=== PATIENT | female | born 1945 | race Caucasian/White ===

== ENCOUNTER 2019-10-03 20:00 | Inpatient (IN) ==
--- NOTE | 2019-10-03 20:36 | Emergency Department Note ---
History of Present Illness General Chief complaint: Shortness of Breath/Dyspnea Stated complaint: SOB Time Seen by Provider: 10/03/19 20:11 History of Present Illness The patient is a 74-year-old female who presented to the emergency department for an evaluation of cough and difficulty breathing. The patient has been noticing left-sided chest pain which is worsened with lying flat but also notices difficulty breathing when she lies flat. She does have a history of pulmonary fibrosis presumably from rheumatoid arthritis. She had coronary artery bypass grafting at the beginning of August. She states that she did have some degree of chest discomfort but she felt that it was secondary to musculoskeletal pain from the surgery. That pain has been improving but she now notices pain on the left side into her back. The pain is intermittent. She does not currently have any discomfort. She notices the pain worse when she lies flat especially at night. She was seen in our facility 2 weeks ago for unrelated complaints. She denies having any fever. She denies having any productive cough. She is had no travel outside of the country. She has no exposure for coronavirus as far she knows. The patient has not seen her primary care provider or her local facilities clerk for the symptoms. Home Medications Home Medications Medication Instructions Recorded Confirmed Type acetaminophen [Tylenol Extra 500 mg PO Q6H PRN 09/22/19 10/03/19 History Strength] aspirin [Aspirin Low Dose] 81 mg PO QAM 09/22/19 10/03/19 History atorvastatin 10 mg PO QAM 09/22/19 10/03/19 History folic acid 1 mg PO QAM 09/22/19 10/03/19 History furosemide 80 mg PO QAM 09/22/19 10/03/19 History metoprolol succinate 25 mg PO QAM 09/22/19 10/03/19 History nitroglycerin 0.4 mg SUBLINGUAL UD PRN 09/22/19 10/03/19 History omeprazole 20 mg PO QAM 09/22/19 10/03/19 History ondansetron 4 mg PO Q6 PRN #14 tab 09/22/19 10/03/19 Rx oxycodone 5 mg PO UD 09/22/19 10/03/19 History potassium chloride 10 meq PO QAM 09/22/19 10/03/19 History Allergies Allergy/AdvReac Type Severity Reaction Status Date / Time codeine Allergy Unknown UNSURE, Verified 10/03/19 21:12 BUT HAD IT BEFORE Past Med/Surg History Surgical History Hx of CABG Social History Preferred Language: Ukrainian Communication Ability: Effective 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 and A total of 10 systems reviewed and were otherwise negative Physical Exam Vital Signs Vital Signs - 24 hr 10/03/19 20:07 10/03/19 20:15 10/03/19 20:16 Temperature 36.8 C Temperature Source Oral Pulse Rate 96 H Pulse Rate from SpO2 Sensor Respiratory Rate 22 Respiratory Effort / Characteristics Non-Labored Spontaneous Respiratory Depth Normal Respiratory Pattern Regular Blood Pressure 177/106 H Blood Pressure Mean 129 Pulse Oximetry 92 93 Oxygen Delivery Method Room Air Room Air Room Air Sepsis Recent Fever Within 48 Hours No Sepsis New/Unexplained Change in Mental Status No Sepsis Action Taken by Nursing No Action Required 10/03/19 20:47 10/03/19 21:00 10/03/19 21:30 Temperature Temperature Source Pulse Rate 90 91 H 86 Pulse Rate from SpO2 Sensor 89 91 H 86 Respiratory Rate Respiratory Effort / Characteristics Respiratory Depth Respiratory Pattern Blood Pressure 165/94 H 168/99 H 164/92 H Blood Pressure Mean 126 118 120 Pulse Oximetry 94 94 93 Oxygen Delivery Method Room Air Room Air Sepsis Recent Fever Within 48 Hours Sepsis New/Unexplained Change in Mental Status Sepsis Action Taken by Nursing 10/03/19 22:00 10/03/19 22:29 10/03/19 22:30 Temperature Temperature Source Pulse Rate 87 96 H Pulse Rate from SpO2 Sensor 87 96 H 95 H Respiratory Rate Respiratory Effort / Characteristics Respiratory Depth Respiratory Pattern Blood Pressure 166/107 H 163/86 H Blood Pressure Mean 126 107 Pulse Oximetry 92 92 92 Oxygen Delivery Method Sepsis Recent Fever Within 48 Hours Sepsis New/Unexplained Change in Mental Status Sepsis Action Taken by Nursing 10/03/19 23:00 10/03/19 23:30 10/04/19 00:00 Temperature Temperature Source Pulse Rate 89 87 88 Pulse Rate from SpO2 Sensor 89 87 89 Respiratory Rate Respiratory Effort / Characteristics Respiratory Depth Respiratory Pattern Blood Pressure 148/79 H 146/78 H 150/85 H Blood Pressure Mean 102 100 101 Pulse Oximetry 94 94 94 Oxygen Delivery Method Sepsis Recent Fever Within 48 Hours Sepsis New/Unexplained Change in Mental Status Sepsis Action Taken by Nursing 10/04/19 00:01 Temperature Temperature Source Pulse Rate 89 Pulse Rate from SpO2 Sensor 86 Respiratory Rate Respiratory Effort / Characteristics Respiratory Depth Respiratory Pattern Blood Pressure Blood Pressure Mean Pulse Oximetry 94 Oxygen Delivery Method Sepsis Recent Fever Within 48 Hours Sepsis New/Unexplained Change in Mental Status Sepsis Action Taken by Nursing GENERAL: Patient is awake alert in no acute distress patient is resting comfortably and showing no signs of anxiety EYES: The conjunctivae are clear. The pupils are round and reactive. EARS, NOSE, MOUTH AND THROAT: The nose is without any evidence of any deformity. Mucous membranes are moist. NECK: The neck is nontender and supple. RESPIRATORY: Normal respiratory effort was noted. There was no tachypnea or conversational dyspnea. Diminished breath sounds are noted in the left base with rales at the left base. CARDIOVASCULAR: Regular rate and rhythm noted there no murmurs rubs or gallops normal S1 normal S2. GASTROINTESTINAL: The abdomen is soft. Abdomen is nontender. MUSCULOSKELETAL/EXTREMITIES: There is no evidence of gross deformity full range of motion is noted in the hips and shoulders. SKIN: There is no obvious evidence of any rash. No significant pedal edema was noted. NEUROLOGIC: Patient is awake alert and oriented x3. Course Course 2335: I discussed this case with Dr. Burrell. He asked me to discuss the case with the hospitalist group for possible inpatient management as the patient may not be able to have thoracentesis as an outpatient if her symptoms continue to worsen. 2345: I discussed this case with Dr. Barfield who is covering for the [facility] hospitalist group. He is agreed to evaluate the patient in the emergency department for further management and disposition. Administered Medications Aspirin (Ecotrin Ectab) 81 mg PO [facility] Stop: 11/03/19 08:59 Last Admin: 10/04/19 08:08 Dose: 81 mg Documented by: [id number] Atorvastatin Calcium (Lipitor) [facility] Stop: 11/03/19 08:59 Last Admin: 10/04/19 08:07 Dose: 10 mg Documented by: [id number] Enoxaparin Sodium (Lovenox) 40 mg SQ [facility] Stop: 11/03/19 08:59 Last Admin: 10/04/19 08:08 Dose: 40 mg Documented by: [id number] Folic Acid (Folvite) 1 mg PO QAM [facility] Stop: 11/03/19 08:59 Last Admin: 10/04/19 08:07 Dose: 1 mg Documented by: [id number] Guaifenesin (Mucinex) 600 mg PO Q12 [facility] Stop: 11/03/19 01:58 Last Admin: 10/04/19 08:09 Dose: 600 mg Documented by: [id number] Admin: 10/04/19 04:26 Dose: 600 mg Documented by: [id number] Metoprolol Succinate (Toprol Xl) 25 mg [facility] Stop: 11/03/19 08:59 Last Admin: 10/04/19 08:07 Dose: 25 mg Documented by: [id number] Pantoprazole Sodium (Protonix) 40 mg PO [facility] Stop: 11/03/19 08:59 Last Admin: 10/04/19 08:08 Dose: 40 mg Documented by: [id number] Discontinued Medications Albuterol (Duoneb) 3 ml NEB NOW STA Stop: 10/04/19 00:37 Last Admin: 10/04/19 00:52 Dose: 3 ml Documented by: [id number] Furosemide (Lasix) 80 mg IV NOW STA Stop: 10/03/19 23:54 Last Admin: 10/04/19 00:11 Dose: 80 mg Documented by: [id number] Furosemide (Lasix) 80 mg IV ONE ONE Stop: 10/04/19 08:01 Last Admin: 10/04/19 08:14 Dose: 80 mg Documented by: [id number] Magnesium Sulfate/Dextrose (Magnesium Sulfate / D5w) 1 gm in 100 mls @ 100 mls/hr IV Q1H [facility] Stop: 10/04/19 05:44 Last Infusion: 10/04/19 06:37 Dose: 0 mls/hr Documented by: [id number] Admin: 10/04/19 05:37 Dose: 100 mls/hr Documented by: [id number] Infusion: 10/04/19 05:26 Dose: 0 mls/hr Documented by: [id number] Admin: 10/04/19 04:26 Dose: 100 mls/hr Documented by: [id number] Ioversol (Optiray 320 125ml) 115 ml IV ONCE PRN PRN Reason: Interaction Checking Stop: 10/07/19 22:24 Last Admin: 10/03/19 22:25 Dose: 115 ml Documented by: [id number] Ipratropium Guffey (Atrovent 0.02% 0.5mg/2.5ml) 0.5 mg INH Q6R [facility] Stop: 11/03/19 06:59 Last Admin: 10/04/19 07:08 Dose: 0.5 mg Documented by: [id number] Levalbuterol HCl (Xopenex 1.25mg/0.5ml Neb) 1.25 mg INH Q6R [facility] Stop: 11/03/19 06:59 Last Admin: 10/04/19 07:09 Dose: 1.25 mg Documented by: [id number] Methylprednisolone (Solumedrol) 20 mg IV NOW STA Stop: 10/04/19 00:37 Last Admin: 10/04/19 00:46 Dose: 20 mg Documented by: [id number] Potassium Chloride (Klor-Con M20) 20 meq PO QAM [facility] Stop: 11/03/19 08:59 Last Admin: 10/04/19 08:08 Dose: 20 meq Documented by: [id number] Prednisone (Prednisone) 40 mg PO NOW STA Stop: 10/04/19 11:59 Last Admin: 10/04/19 12:15 Dose: 40 mg Documented by: [id number] Medical Decision Making Differential Diagnosis Reactive airway disease, pneumonia, pneumothorax, COPD, CHF, infections, cardiac ischemia, pulmonary embolism, musculoskeletal, gastrointestinal, as well as other pathologies. Medical Records Attestation: I reviewed the patient's medical records. Home Medications Current Medication List: was personally reviewed by me Laboratory Data Attestation: I reviewed the patient's lab results. Result diagrams: 10/04/19 07:07 10/04/19 07:07 Lab Results 10/03/19 10/03/19 10/03/19 Range/Units 20:34 20:34 20:34 WBC 13.51 H (4.8-10.8) K/uL RBC 3.98 L (4.2-5.4) M/uL Hgb 11.9 L (12.0-16.0) g/dL Hct 36.6 L (37-47) % MCV 92.0 (80-100) fL MCH 29.9 (25-34) pg MCHC 32.5 (32-36) g/dL RDW Std Deviation 47.8 H (36.4-46.3) fL RDW Coeff of Jacquelyn 14.4 (11.5-14.5) % Plt Count 407 H (130-400) K/uL MPV 9.8 (7.4-10.4) fL Immature Gran % (Auto) 0.6 % Neut % (Auto) 68.4 % Lymph % (Auto) 14.1 % Culberson % (Auto) 14.7 % Eos % (Auto) 2.1 % Baso % (Auto) 0.1 % Immature Gran # (Auto) 0.08 H (0.00-0.02) K/uL Neut # (Auto) 9.25 H (1.4-6.5) K/uL Lymph # (Auto) 1.90 (1.2-3.4) K/uL Culberson # (Auto) 1.98 H (0.11-0.59) K/uL Eos # (Auto) 0.29 (0-0.5) K/uL Baso # (Auto) 0.01 (0-0.2) K/uL PT 11.3 (9.0-12.0) Seconds INR 1.1 (0.9-1.1) APTT 25.6 (21.0-31.0) Seconds PTT Ratio 0.9 D-Dimer 2550 H* (0-500) ug/L FEU Sodium 138 (136-145) mmol/L Potassium 4.1 (3.5-5.1) mmol/L Chloride 106 (98-107) mmol/L Carbon Dioxide 26 (21-32) mmol/L Anion Gap 6.0 (3-11) BUN 15 (7-18) mg/dl Creatinine 0.85 (0.6-1.2) mg/dl Est Cr Clr Drug Dosing 59.8 ml/min Est GFR ( Amer) 79.3 Est GFR (Non-Af Amer) 68.5 BUN/Creatinine Ratio 18.0 (10-20) Glucose 114 H (70-99) mg/dl Calcium 9.1 (8.5-10.1) mg/dl Magnesium 1.8 (1.8-2.4) mg/dl Total Bilirubin 0.5 (0.2-1) mg/dl AST 14 L (15-37) U/L ALT 15 (12-78) U/L Alkaline Phosphatase 65 (45-117) U/L Troponin I < 0.015 (0-0.045) ng/ml NT-Pro-B Natriuret Pep 1398 H (0-900) pg/ml Total Protein 7.5 (6.4-8.2) gm/dl Albumin 2.8 L (3.4-5.0) gm/dl Globulin 4.7 H (2.5-4.0) gm/dl Albumin/Globulin Ratio 0.6 L (0.9-2) Lipase 74 (73-393) U/L Imaging Data Radiologist's Impression: SINGLE VIEW CHEST CLINICAL HISTORY: Atypical chest pain. FINDINGS: An AP, portable, upright chest radiograph is compared to study dated 09/22/2019. The examination is degraded by portable technique and patient rotation. The patient is status post midline sternotomy. The heart is enlarged noting atherosclerotic calcification of the thoracic aorta. There is pulmonary vascular congestion. Emphysema and chronic interstitial thickening are similar to previous. Dependent airspace opacities are noted. Trace pleural effusions are suspected. No pneumothorax is seen. The skeletal structures are osteopenic. The bony thorax is grossly intact. IMPRESSION: 1. Cardiomegaly with evidence of congestive failure. 2. Dependent airspace opacities likely represent atelectasis. Clinical correlation will be required. 3. Suspect trace pleural effusions. ACT 112: Negative or not required by law. Electronically signed by: Gabe Gasca M.D. 10/03/2019 9:26 PM Dictated: 10/03/192123 Transcribed: 10/03/192123 CT ANGIOGRAM OF THE CHEST CLINICAL HISTORY: Dyspnea. Cough. COMPARISON STUDY: Chest x-ray dated 10/03/2019. Chest CT dated 03/01/2008. TECHNIQUE: Following the IV administration of 115 cc of Optiray 320, CT angiogram of the chest was performed from the upper abdomen to the thoracic inlet utilizing the pulmonary embolus protocol. Images are reviewed in the axial, sagittal, and coronal planes. 3-D MIPS images are created and assessed. IV contrast was administered without complication. A dose lowering technique was utilized adhering to the principles of ALARA. The examination is compromised by motion artifact. CT DOSE: 541.44 mGycm FINDINGS: Thyroid: Imaged portions of the thyroid gland are normal in size and attenuation. Thoracic aorta: There is atherosclerotic calcification of the thoracic aorta, which is normal in caliber and demonstrates standard 3-vessel arch anatomy. No dissection is seen. Pulmonary vasculature: The pulmonary trunk is mildly dilated measuring 3.1 cm in diameter. This suggests pulmonary artery hypertension. There are no filling defects identified in main, lobar, or proximal segmental pulmonary branches to suggest pulmonary embolus. Evaluation of the peripheral branches is degraded by motion artifact. Heart: The patient is status post midline sternotomy. The heart is enlarged and without pericardial effusion. Lungs and pleural spaces: Evaluation of the lung parenchyma is significantly degraded by motion artifact. Emphysematous change is noted. There is a small left pleural effusion with associated basilar consolidation. Trace fluid is noted along the left major fissure. The trachea and central airways are clear. A 4 mm right upper lobe pulmonary nodule is seen on image #168. Scattered calcified granulomas are observed. Mediastinum: There is no mediastinal lymphadenopathy. Christina: Clear. Axillae: There is no axillary lymphadenopathy. Upper abdomen: There is a small hiatal hernia. Partially visualized upper abdominal viscera is within normal limits. Skeletal structures: The skeletal structures are osteopenic. Degenerative change is noted in the shoulders and thoracic spine. No lytic or blastic bony lesions are seen. IMPRESSION: 1. Motion compromised examination. 2. There is no evidence of central pulmonary embolus in the main, lobar, or proximal segmental pulmonary arteries. 3. Cardiomegaly and emphysema. 4. There is a small left pleural effusion with associated basilar consolidation. This likely represents atelectasis. Clinical correlation will be required. 5. There is a 4 mm right upper lobe pulmonary nodule. This is pathologically indeterminant but new from 2008. This can be followed as per the Fleischner criteria. See below. 6. Additional findings as above. Please refer to below summary of Fleischner criteria recommendations for follow- up of incidental CT nodules (Leo Walter, Guidelines for management of small pulmonary nodules detected on CT scans: A statement from the Fleischner [facility], Radiology 237: [phone].) SOLID NODULES Solitary nodule size: <6 mm * low risk patients: no follow-up needed * high risk patients: optional CT at 12 months Solitary nodule size: 6-8 mm * low risk patients: follow-up at 6-12 months, then consider further follow-up at 18-24 months * high risk patients: initial follow-up CT at 6-12 months and then at 18-24 months if no change Solitary nodule size: >8 mm * either low or high risk patients - consider follow-up CT at 3 months, and/or CT-PET, and/or biopsy Multiple nodules size: <6 mm * low risk patients: no routine follow-up * high risk patients: optional CT at 12 months Multiple nodules size: 6-8 mm * low risk patients: follow-up at 3-6 months, then consider further follow-up at 18-24 months * high risk patients: follow-up at 3-6 months, then at 18-24 months if no change Multiple nodules size: >8 mm * low risk patients: follow-up at 3-6 months, then consider further follow-up at 18-24 months * high risk patients: follow-up at 3-6 months, then at 18-24 months if no change Note: newly detected indeterminate nodule in persons 35 years of age or older. * low risk patients: minimal or absent history of smoking and/or other known risk factors * high risk patients: history of smoking or of other known risk factors (e.g. first degree relative with lung cancer, or exposure to asbestos, radon, uranium) * if a nodule up to 8 mm is partly solid or is ground glass further follow-up is required after 24 months to exclude possible slow growing adenocarcinoma (KARLO) SUBSOLID NODULES Solitary pure ground-glass nodule * nodule size <6 mm - no CT follow-up required * nodule size >=6 mm - follow-up CT at 6-12 months, then every 2 years until 5 years Solitary part-solid nodule * nodule size <6 mm - no CT follow-up required * nodule size >=6 mm - follow-up CT at 3-6 months. If unchanged, and solid component remains <6 mm, then annual follow-up for 5 years Multiple subsolid nodules * nodule size <6 mm - follow-up CT at 3-6 months, consider further follow-up at 2 and 4 years if stable * nodule size >=6 mm - follow-up CT at 3-6 months, subsequent management based on the most suspicious nodule(s) ACT 112: Negative or not required by law. Electronically signed by: Gabe Gasca M.D. 10/03/2019 10:39 PM Dictated: 10/03/[id number] Transcribed: 10/03/192227 ECG Data Attestation: I personally reviewed and interpreted this ECG as follows: Indication: + SOB/dyspnea Rate (beats per minute): 93 Additional Comments: EKG was obtained in the emergency department. My interpretation is normal sinus rhythm at 93 bpm. There is no ectopy. There is diffuse T wave flattening with anterior T wave inversions noted. There is no acute ST segment elevations noted. There was no significant change compared to a tracing from September 22, 2019. Blood Pressure Blood Pressure Findings: Elevated blood pressure Blood Pressure Disposition: Referred to patients primary care provider SHAYAN Reyes The patient is a 74-year-old female who presented to the emergency department for an evaluation of difficulty breathing especially when lying flat and pleuritic left-sided chest pain. The patient is status post coronary artery bypass grafting. The patient was seen previously for similar complaints. Comparing her chest x-ray 2 weeks ago to her radiographic studies today it does appear that her left-sided pleural effusion is increasing. The patient is not febrile. She does not have a productive cough. Her white blood cell count was elevated but I do not feel this represents an infection at this time. I discussed the patient's laboratory and radiographic studies with her. The patient does have a follow-up appointment with her primary facilities clerk group tomorrow. The patient was reevaluated multiple times. I discussed the patient's condition with the on-call [facility] cardiology group. Given the patient's worsening symptoms and her pleural effusion it was felt that this may be best evaluated as an inpatient as well as possible thoracentesis to determine the cause of the pleural effusion as well as to treat the symptoms. For this reason I discussed her case with the on-call [facility] hospitalist group. They have agreed to evaluate the patient in the emergency department for further management and disposition. Impression & Plan Chest pain, Pleural effusion, Acute dyspnea Discharge Plan Visit Data *Final* Discharge Date/Time: 10/04/19 01:25 Chief Complaint: Shortness of Breath/Dyspnea Stated Complaint: SOB ED Provider: Jae Jung Discharge Problem: Chest pain, Pleural effusion, Acute dyspnea Patient Disposition: Admitted As Inpatient Condition: Good Discharge Instructions Interventions: ED Discharge Assessment Last Done: 10/04/19 01:25 Discharge Problem: Chest pain Qualifiers: Chest pain type: chest pain on breathing Qualified Code(s): R07.1 - Chest pain on breathing
[2019-10-03 21:17] LABS: Basophils # (auto) 0.01 K/uL (0-0.2); Basophils % (auto) 0.1 %; Eosinophils # (auto) 0.29 K/uL (0-0.5); Eosinophils % (auto) 2.1 %; Hematocrit (blood only) 36.6 % (37-47); Hemoglobin 11.9 g/dL (12.0-16.0); Immature Granulocytes # (auto) 0.08 K/uL (0.00-0.02); Immature Granulocytes % (auto) 0.6 %; Lymphocytes % (auto) 14.1 %; Mean Corpuscular Hemoglobin 29.9 pg (25-34); Mean Corpuscular Hgb Conc 32.5 g/dL (32-36); Mean Platelet Volume 9.8 fL (7.4-10.4); Monocytes # (auto) 1.98 K/uL (0.11-0.59); Monocytes % (auto) 14.7 %; Neutrophils # (auto) 9.25 K/uL (1.4-6.5); Neutrophils % (auto) 68.4 %; Platelet Count 407 K/uL (130-400); RDW Coefficient of Variation 14.4 % (11.5-14.5); RDW Standard Deviation 47.8 fL (36.4-46.3); Red Blood Count 3.98 M/uL (4.2-5.4); White Blood Count 13.51 K/uL (4.8-10.8)
[2019-10-03 21:21] LABS: INR 1.1 (0.9-1.1); Partial Thromboplastin Ratio 0.9; Partial Thromboplastin Time 25.6 Seconds (21.0-31.0); Prothrombin Time 11.3 Seconds (9.0-12.0)
[2019-10-03 21:26] LABS: Alanine Aminotransferase 15 U/L (12-78); Albumin Level 2.8 gm/dl (3.4-5.0); Aspartate Aminotransferase 14 U/L (15-37); Blood Urea Nitrogen 15 mg/dl (7-18); Calcium 9.1 mg/dl (8.5-10.1); Carbon Dioxide 26 mmol/L (21-32); Chloride 106 mmol/L (98-107); Creatinine Clr Calc Pharmacy 59.8 ml/min; Est GFR (African American) 79.3; Est GFR (Non-African American) 68.5; Glucose 114 mg/dl (70-99); Lipase 74 U/L (73-393); Potassium 4.1 mmol/L (3.5-5.1); Sodium 138 mmol/L (136-145)
--- NOTE | 2019-10-03 21:27 | XRay Report ---
SINGLE VIEW CHEST CLINICAL HISTORY: Atypical chest pain. FINDINGS: An AP, portable, upright chest radiograph is compared to study dated 09/22/2019. The examina tion is degraded by portable technique and patient rotation. The patient is status post midline ryder otomy. The heart is enlarged noting atherosclerotic calcification of the thoracic aorta. There is pul monary vascular congestion. Emphysema and chronic interstitial thickening are similar to previous. De pendent airspace opacities are noted. Trace pleural effusions are suspected. No pneumothorax is seen. The skeletal structures are osteopenic. The bony thorax is grossly intact. IMPRESSION: 1. Cardiomegaly with evidence of congestive failure. 2. Dependent airspace opacities likely represent atelectasis. Clinical correlation will be required. 3. Suspect trace pleural effusions. ACT 112: Negative or not required by law. Electronically signed by: Gabe Gasca M.D. 10/03/2019 9:26 PM
[2019-10-03 21:31] LABS: Albumin Globulin Ratio 0.6 (0.9-2); Alkaline Phosphatase 65 U/L (45-117); Bilirubin,Total 0.5 mg/dl (0.2-1); Globulin 4.7 gm/dl (2.5-4.0); NT Pro B Type Natriuretic Pept 1398 pg/ml (0-900); Total Protein 7.5 gm/dl (6.4-8.2); Troponin I < 0.015 ng/ml (0-0.045)
[2019-10-03 21:32] LABS: D Dimer 2550 ug/L FEU (0-500)
[2019-10-03] MEDS ORDERED: OPTIRAY 320 125ml IV PRN (22:25)
--- NOTE | 2019-10-03 22:40 | CT Scan Report ---
CT ANGIOGRAM OF THE CHEST CLINICAL HISTORY: Dyspnea. Cough. COMPARISON STUDY: Chest x-ray dated 10/03/2019. Chest CT dated 03/01/2008. TECHNIQUE: Following the IV administration of 115 cc of Optiray 320, CT angiogram of the chest was pe rformed from the upper abdomen to the thoracic inlet utilizing the pulmonary embolus protocol. Images are reviewed in the axial, sagittal, and coronal planes. 3-D MIPS images are created and assessed. I V contrast was administered without complication. A dose lowering technique was utilized adhering to the principles of ALARA. The examination is compromised by motion artifact. CT DOSE: 541.44 mGycm FINDINGS: Thyroid: Imaged portions of the thyroid gland are normal in size and attenuation. Thoracic aorta: There is atherosclerotic calcification of the thoracic aorta, which is normal in yokasta saqib and demonstrates standard 3-vessel arch anatomy. No dissection is seen. Pulmonary vasculature: The pulmonary trunk is mildly dilated measuring 3.1 cm in diameter. This sugge sts pulmonary artery hypertension. There are no filling defects identified in main, lobar, or proxima l segmental pulmonary branches to suggest pulmonary embolus. Evaluation of the peripheral branches is degraded by motion artifact. Heart: The patient is status post midline sternotomy. The heart is enlarged and without pericardial e ffusion. Lungs and pleural spaces: Evaluation of the lung parenchyma is significantly degraded by motion artif act. Emphysematous change is noted. There is a small left pleural effusion with associated basilar co nsolidation. Trace fluid is noted along the left major fissure. The trachea and central airways are c lear. A 4 mm right upper lobe pulmonary nodule is seen on image #168. Scattered calcified granulomas are observed. Mediastinum: There is no mediastinal lymphadenopathy. Christina: Clear. Axillae: There is no axillary lymphadenopathy. Upper abdomen: There is a small hiatal hernia. Partially visualized upper abdominal viscera is within normal limits. Skeletal structures: The skeletal structures are osteopenic. Degenerative change is noted in the shou lders and thoracic spine. No lytic or blastic bony lesions are seen. IMPRESSION: 1. Motion compromised examination. 2. There is no evidence of central pulmonary embolus in the main, lobar, or proximal segmental pulmon fili arteries. 3. Cardiomegaly and emphysema. 4. There is a small left pleural effusion with associated basilar consolidation. This likely represen ts atelectasis. Clinical correlation will be required. 5. There is a 4 mm right upper lobe pulmonary nodule. This is pathologically indeterminant but new fr om 2007. This can be followed as per the Fleischner criteria. See below. 6. Additional findings as above. Please refer to below summary of Fleischner criteria recommendations for follow-up of incidental CT n odules (Leo Walter, Guidelines for management of small pulmonary nodules detected on CT scans: A sta tement from the Fleischner Society, Radiology 237: [phone].) SOLID NODULES Solitary nodule size: <6 mm * low risk patients: no follow-up needed * high risk patients: optional CT at 12 months Solitary nodule size: 6-8 mm * low risk patients: follow-up at 6-12 months, then consider further follow-up at 18-24 months * high risk patients: initial follow-up CT at 6-12 months and then at 18-24 months if no change Solitary nodule size: >8 mm * either low or high risk patients - consider follow-up CT at 3 months, and/or CT-PET, and/or biopsy Multiple nodules size: <6 mm * low risk patients: no routine follow-up * high risk patients: optional CT at 12 months Multiple nodules size: 6-8 mm * low risk patients: follow-up at 3-6 months, then consider further follow-up at 18-24 months * high risk patients: follow-up at 3-6 months, then at 18-24 months if no change Multiple nodules size: >8 mm * low risk patients: follow-up at 3-6 months, then consider further follow-up at 18-24 months * high risk patients: follow-up at 3-6 months, then at 18-24 months if no change Note: newly detected indeterminate nodule in persons 35 years of age or older. * low risk patients: minimal or absent history of smoking and/or other known risk factors * high risk patients: history of smoking or of other known risk factors (e.g. first degree relative with lung cancer, or exposure to asbestos, radon, uranium) * if a nodule up to 8 mm is partly solid or is ground glass further follow-up is required after 24 m onths to exclude possible slow growing adenocarcinoma (KARLO) SUBSOLID NODULES Solitary pure ground-glass nodule * nodule size <6 mm - no CT follow-up required * nodule size >=6 mm - follow-up CT at 6-12 months, then every 2 years until 5 years Solitary part-solid nodule * nodule size <6 mm - no CT follow-up required * nodule size >=6 mm - follow-up CT at 3-6 months. If unchanged, and solid component remains <6 mm, then annual follow-up for 5 years Multiple subsolid nodules * nodule size <6 mm - follow-up CT at 3-6 months, consider further follow-up at 2 and 4 years if sta ble * nodule size >=6 mm - follow-up CT at 3-6 months, subsequent management based on the most suspiciou s nodule(s) ACT 112: Negative or not required by law. Electronically signed by: Gabe Gasca M.D. 10/03/2019 10:39 PM
[2019-10-03] MEDS ORDERED: FUROSEMIDE 40 MG/4 ML VIAL IV STA (23:53)
[2019-10-04 00:17] LABS: Magnesium 1.8 mg/dl (1.8-2.4)
[2019-10-04] MEDS ORDERED: ALBUT/IPRATROP 3MG/0.5MG NEB 3 ML VIAL NEB STA (00:36)
--- NOTE | 2019-10-04 00:37 | History & Physical Report ---
Date of Service October 04, 2019 Assessment & Plan (1) SOB (shortness of breath): multifactorial : pleural effusions w abnormal BNP, subacute CHF (history diastolic dysfunction as per records) rule out postcardiac injury syndrome ? COPD/ILD exacerbation, no sepsis rule out COVID-19 infection given risk factors hx CAD status post CABG hypertension, stable hyperlipidemia on statin Rx History rheumatoid arthritis, methotrexate recently resumed outpatient for joint aches prediabetes as per records, recent outpatient hemoglobin A1c of 6.29 June 2019 SPN, incidental finding on CT chest past tobacco abuse. PCU Diuretic Rx Strict I/Os, daily weights Update TTE, Cardio consult RE: Post CABG pleural effusion Solu-Medrol 1 dose now, nebs RTC PRN for possible COPD exacerbation Isolation precautions, hold off on additional steroid Rx until COVID-19 infection ruled out May benefit from Pulmonary evaluation if symptoms ascribed to lung disease. Outpatient follow-up imaging for SPN following Fleischner criteria DVT prophylaxis per Lovenox subcu Full code Text document was generated using [employer] voice recognition software. It may contain grammatical or spelling errors. Kindly contact undersigned for clarification of any documentation item in question. History of Present Illness [facility] Chief Complaint: Shortness of breath Primary Care Provider: Jah Lyon MD History obtained from patient and records. Medical history significant for diastolic dysfunction as per records (EF 50% 08/2019), CAD status post CABG, RA-ILD/COPD as per records, rheumatoid arthritis, hypertension, hyperlipidemia, mitral regurgitation, prediabetes as per records, past tobacco abuse. Recent confinement to [facility] under CT surgery service last month for CAD status post CABG. Persistent pleural effusions noted on CXR since surgery last month. Intraoperative BEKA showed EF 50 to 54%, mild to moderate secondary mitral regurgitation. Patient discharged on daily Lasix. Patient seen at the ER 2 weeks ago for bowel issues that have since resolved. Doing well on outpatient follow-up with CT surgeon last week as per notes. Diffuse aches noted about 2 weeks ago attributed to being off rheumatoid arthritis meds since surgery. Patient received 1 dose of methotrexate outpatient last week. 2 days history of dry cough symptoms, pleuritic left-sided chest pain and shortness of breath mostly on exertion. No fever. Poor appetite. Some wheezing at home as per patient. Not sure about sick contacts given recent confinement/ER visit. No recent metropolitan/out of country travel travel. No unusual fluid retention. Patient brought to the ER for evaluation. 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 Allergies Allergy/AdvReac Type Severity Reaction Status Date / Time codeine Allergy Unknown UNSURE, Verified 10/03/19 21:12 BUT HAD IT BEFORE Home Medications Home Medications Medication Instructions Recorded Confirmed Type acetaminophen [Tylenol Extra 500 mg PO Q6H PRN 09/22/19 10/03/19 History Strength] aspirin [Aspirin Low Dose] 81 mg PO QAM 09/22/19 10/03/19 History atorvastatin 10 mg PO QAM 09/22/19 10/03/19 History folic acid 1 mg PO QAM 09/22/19 10/03/19 History furosemide 80 mg PO QAM 09/22/19 10/03/19 History metoprolol succinate 25 mg PO QAM 09/22/19 10/03/19 History nitroglycerin 0.4 mg SUBLINGUAL UD PRN 09/22/19 10/03/19 History omeprazole 20 mg PO QAM 09/22/19 10/03/19 History ondansetron 4 mg PO Q6 PRN #14 tab 09/22/19 10/03/19 Rx oxycodone 5 mg PO UD 09/22/19 10/03/19 History potassium chloride 10 meq PO QAM 09/22/19 10/03/19 History Past Med/Surg History Surgical History Hx of CABG Social History Preferred Language: Upper Sorbian Communication Ability: Effective 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 Beliefs That Will Affect Care: None Current Living Situation: Spouse Other Information That Helps Us Care for You: No Feels Safe at Home: Yes Safety Concerns: Feels Safe At This Time Smoking Status: Never smoker Hx Substance Use: No Review of Systems Review of Systems: As per HPI, all 10 systems reviewed, all other ROS negative Physical Exam Physical Exam: GENERAL: Slightly uncomfortable, pleasant, minimal respiratory distress, occasionally speaks in phrases, SKIN: Normal color, warm HEENT: [place] palpebral conjunctivae, no ptosis, dry buccal mucosa NECK : Supple, no tenderness CHEST : CTA, no tenderness HEART : Healed sternal wound, RRR, ? Systolic murmur ABDOMEN: Some distention, nontender EXTREMITIES : Minimal LE swelling, no LE tenderness, no other conspicuous deformities noted NEUROLOGIC : Coherent, no facial asymmetry, no other gross focality, mild hearing impairment Results & Data Results & Data ([facility]) Vital Signs (Past 12 Hours) Vital Signs Temp Pulse Resp BP Pulse Ox 10/04/19 00:01 89 94 10/04/19 00:00 88 150/85 H 94 10/03/19 23:30 87 146/78 H 94 10/03/19 23:00 89 148/79 H 94 10/03/19 22:30 96 H 163/86 H 92 10/03/19 22:29 166/107 H 92 10/03/19 22:00 87 92 10/03/19 21:30 86 164/92 H 93 10/03/19 21:00 91 H 168/99 H 94 10/03/19 20:47 90 165/94 H 94 10/03/19 20:16 93 10/03/19 20:07 36.8 C 96 H 22 177/106 H 92 Laboratory Results Laboratory Results WBC 13.51 K/uL (4.8-10.8) H 10/03/19 20:34 RBC 3.98 M/uL (4.2-5.4) L 10/03/19 20:34 Hgb 11.9 g/dL (12.0-16.0) L 10/03/19 20:34 Hct 36.6 % (37-47) L 10/03/19 20:34 MCV 92.0 fL (80-100) 10/03/19 20:34 MCH 29.9 pg (25-34) 10/03/19 20:34 MCHC 32.5 g/dL (32-36) 10/03/19 20:34 RDW Std Deviation 47.8 fL (36.4-46.3) H 10/03/19 20:34 RDW Coeff of Jacquelyn 14.4 % (11.5-14.5) 10/03/19 20:34 Plt Count 407 K/uL (130-400) H 10/03/19 20:34 MPV 9.8 fL (7.4-10.4) 10/03/19 20:34 Immature Gran % (Auto) 0.6 % 10/03/19 20:34 Neut % (Auto) 68.4 % 10/03/19 20:34 Lymph % (Auto) 14.1 % 10/03/19 20:34 Wirt % (Auto) 14.7 % 10/03/19 20:34 Eos % (Auto) 2.1 % 10/03/19:34 Baso % (Auto) 0.1 % 10/03/19 20:34 Immature Gran # (Auto) 0.08 K/uL (0.00-0.02) H 10/03/19:34 Neut # (Auto) 9.25 K/uL (1.4-6.5) H 10/03/19 20:34 Lymph # (Auto) 1.90 K/uL (1.2-3.4) 10/03/19 20:34 Wirt # (Auto) 1.98 K/uL (0.11-0.59) H 10/03/19 20:34 Eos # (Auto) 0.29 K/uL (0-0.5) 10/03/19:34 Baso # (Auto) 0.01 K/uL (0-0.2) 10/03/19:34 PT 11.3 Seconds (9.0-12.0) 10/03/19:34 INR 1.1 (0.9-1.1) 10/03/19:34 APTT 25.6 Seconds (21.0-31.0) 10/03/19:34 PTT Ratio 0.9 10/03/19:34 D-Dimer 2550 ug/L FEU (0-500) H* 10/03/19 20:34 Sodium 138 mmol/L (136-145) 10/03/19:34 Potassium 4.1 mmol/L (3.5-5.1) 10/03/19 20:34 Chloride 106 mmol/L (98-107) 10/03/19 20:34 Carbon Dioxide 26 mmol/L (21-32) 10/03/19:34 Anion Gap 6.0 (3-11) 04/08/20 20:34 BUN 15 mg/dl (7-18) 10/03/19 20:34 Creatinine 0.85 mg/dl (0.6-1.2) 10/03/19 20:34 Est Cr Clr Drug Dosing 59.8 ml/min 10/03/19 20:34 Est GFR ( Amer) 79.3 10/03/19 20:34 Est GFR (Non-Af Amer) 68.5 10/03/19 20:34 BUN/Creatinine Ratio 18.0 (10-20) 10/03/19 20:34 Glucose 114 mg/dl (70-99) H 10/03/19 20:34 Calcium 9.1 mg/dl (8.5-10.1) 10/03/19: Magnesium 1.8 mg/dl (1.8-2.4) 10/03/19 20:34 Total Bilirubin 0.5 mg/dl (0.2-1) 10/03/19 20:34 AST 14 U/L (15-37) L 10/03/19:34 ALT 15 U/L (12-78) 10/03/19:34 Alkaline Phosphatase 65 U/L (45-117) 10/03/19:34 Troponin I < 0.015 ng/ml (0-0.045) 10/03/19: NT-Pro-B Natriuret Pep 1398 pg/ml (0-900) H 10/03/19 20:34 Total Protein 7.5 gm/dl (6.4-8.2) 10/03/19: Albumin 2.8 gm/dl (3.4-5.0) L 10/03/19: Globulin 4.7 gm/dl (2.5-4.0) H 10/03/19 20:34 Albumin/Globulin Ratio 0.6 (0.9-2) L 10/03/19: Lipase 74 U/L (73-393) 10/03/19 20:[address] chest: 1. Motion compromised examination. 2. There is no evidence of central pulmonary embolus in the main, lobar, or proximal segmental pulmonary arteries. 3. Cardiomegaly and emphysema. 4. There is a small left pleural effusion with associated basilar consolidation. This likely represents atelectasis. Clinical correlation will be required. 5. There is a 4 mm right upper lobe pulmonary nodule. This is pathologically indeterminant but new from 2007. This can be followed as per the Fleischner criteria. See below. 6. Additional findings as above. Please refer to below summary of Fleischner criteria recommendations for follow- up of incidental CT nodules (Leo Walter, Guidelines for management of small pulmonary nodules detected on CT scans: A statement from the Fleischner Society, Radiology 237: [phone].) SOLID NODULES Solitary nodule size: <6 mm * low risk patients: no follow-up needed * high risk patients: optional CT at 12 months Solitary nodule size: 6-8 mm * low risk patients: follow-up at 6-12 months, then consider further follow-up at 18-24 months * high risk patients: initial follow-up CT at 6-12 months and then at 18-24 months if no change Solitary nodule size: >8 mm * either low or high risk patients - consider follow-up CT at 3 months, and/or CT-PET, and/or biopsy Multiple nodules size: <6 mm * low risk patients: no routine follow-up * high risk patients: optional CT at 12 months Multiple nodules size: 6-8 mm * low risk patients: follow-up at 3-6 months, then consider further follow-up at 18-24 months * high risk patients: follow-up at 3-6 months, then at 18-24 months if no change Multiple nodules size: >8 mm * low risk patients: follow-up at 3-6 months, then consider further follow-up at 18-24 months * high risk patients: follow-up at 3-6 months, then at 18-24 months if no change Note: newly detected indeterminate nodule in persons 35 years of age or older. * low risk patients: minimal or absent history of smoking and/or other known risk factors * high risk patients: history of smoking or of other known risk factors (e.g. first degree relative with lung cancer, or exposure to asbestos, radon, uranium) * if a nodule up to 8 mm is partly solid or is ground glass further follow-up is required after 24 months to exclude possible slow growing adenocarcinoma (KARLO) SUBSOLID NODULES Solitary pure ground-glass nodule * nodule size <6 mm - no CT follow-up required * nodule size >=6 mm - follow-up CT at 6-12 months, then every 2 years until 5 years Solitary part-solid nodule * nodule size <6 mm - no CT follow-up required * nodule size >=6 mm - follow-up CT at 3-6 months. If unchanged, and solid component remains <6 mm, then annual follow-up for 5 years Multiple subsolid nodules * nodule size <6 mm - follow-up CT at 3-6 months, consider further follow-up at 2 and 4 years if stable * nodule size >=6 mm - follow-up CT at 3-6 months, subsequent management based on the most suspicious nodule(s) Chest x-ray : 1. Cardiomegaly with evidence of congestive failure. 2. Dependent airspace opacities likely represent atelectasis. Clinical correlation will be required. 3. Suspect trace pleural effusions. EKG as per my interpretation : Rate 95, NSR, normal axis, diffuse T wave abnormalities, PVCs
[2019-10-04 01:53] LABS: Influenza A virus by PCR Neg for Influ A (Neg); Influenza B virus by PCR Neg for Influ B (Neg)
[2019-10-04] MEDS ORDERED: PROMETHAZINE HCL 12.5 MG in SODIUM CHLORIDE 0.9% 50 ML IV PRN (01:59)
[2019-10-04] MEDS ORDERED: OXYCODONE HCL IR 5 MG TAB (IMMEDIATE RELEASE) PO PRN (01:59)
[2019-10-04] MEDS ORDERED: ACETAMINOPHEN 325 MG TAB PO PRN (01:59)
[2019-10-04] MEDS: guaiFENesin 600 MG TABCR PO SCH ×3 (04:26→20:01)
[2019-10-04] MEDS: MAGNESIUM SULFATE / D5W 1 GM/100 ML BAG IV SCH ×2 (04:26→05:37)
[2019-10-04] MEDS ORDERED: XOPENEX/ATROVENT 1.25mg/0.5MG NEB COMBO NEB SCH (07:00)
[2019-10-04] MEDS ORDERED: IPRATROPIUM BROMIDE NEB SOLN 0.02% 2.5 ML VIAL INH SCH (07:00)
[2019-10-04] MEDS ORDERED: LEVALBUTEROL 1.25MG/0.5ML NEB INH SCH (07:00)
[2019-10-04 07:35] LABS: Basophils # (auto) 0.01 K/uL (0-0.2); Basophils % (auto) 0.1 %; Hematocrit (blood only) 39.3 % (37-47); Hemoglobin 12.7 g/dL (12.0-16.0); Immature Granulocytes # (auto) 0.04 K/uL (0.00-0.02); Immature Granulocytes % (auto) 0.4 %; Lymphocytes # (auto) 0.69 K/uL (1.2-3.4); Lymphocytes % (auto) 7.1 %; Mean Corpuscular Hemoglobin 29.4 pg (25-34); Mean Corpuscular Hgb Conc 32.3 g/dL (32-36); Mean Platelet Volume 9.6 fL (7.4-10.4); Monocytes # (auto) 0.18 K/uL (0.11-0.59); Monocytes % (auto) 1.9 %; Neutrophils # (auto) 8.77 K/uL (1.4-6.5); Neutrophils % (auto) 90.5 %; Platelet Count 399 K/uL (130-400); RDW Coefficient of Variation 14.3 % (11.5-14.5); RDW Standard Deviation 46.6 fL (36.4-46.3); Red Blood Count 4.32 M/uL (4.2-5.4); White Blood Count 9.69 K/uL (4.8-10.8)
[2019-10-04] MEDS ORDERED: FUROSEMIDE 40 MG/4 ML VIAL IV ONE (08:00)
[2019-10-04 08:05] LABS: BUN Creatinine Ratio 16.8 (10-20); Blood Urea Nitrogen 14 mg/dl (7-18); Calcium 9.6 mg/dl (8.5-10.1); Carbon Dioxide 28 mmol/L (21-32); Chloride 102 mmol/L (98-107); Creatinine Clr Calc Pharmacy 60.2 ml/min; Est GFR (African American) 80.5; Est GFR (Non-African American) 69.4; Glucose 199 mg/dl (70-99); Potassium 3.6 mmol/L (3.5-5.1); Sodium 136 mmol/L (136-145)
[2019-10-04] MEDS: ATORVASTATIN 10 MG TAB PO SCH (08:07)
[2019-10-04] MEDS: FOLIC ACID 1 MG TAB PO SCH (08:07)
[2019-10-04] MEDS: METOPROLOL SUCC 25MG EXT REL TAB PO SCH (08:07)
[2019-10-04] MEDS: ENOXAPARIN INJ 40 MG/0.4 ML SYR SQ SCH (08:08)
[2019-10-04] MEDS: ASPIRIN 81 MG ECTAB PO SCH (08:08)
[2019-10-04] MEDS: PANTOprazole 40 MG TAB PO SCH (08:08)
[2019-10-04 08:09] LABS: Troponin I < 0.015 ng/ml (0-0.045)
--- NOTE | 2019-10-04 08:35 | XRay Report ---
XR chest 1V portable HISTORY: 74 years-old Female pleural effusion, ffup study follow-up study in a patient with pleural effusion COMPARISON: Chest radiograph and CTA chest 10/13/2019 TECHNIQUE: Portable AP view of the chest FINDINGS: Cardiomegaly with pulmonary vascular congestion. Emphysema with chronic interstitial coarsening. Mild bibasilar opacities with unchanged small left pleural effusion. Slightly improved aeration of the le ft lung base. Degenerative changes of the shoulders and spine. Prior median sternotomy. IMPRESSION: 1. Cardiomegaly with pulmonary vascular congestion. 2. Slightly improved aeration of the left lung base with persistent mild bibasilar opacities. 3. Unchanged small left pleural effusion. ACT 112: Negative or not required by law. The above report was generated using voice recognition software. It may contain grammatical, syntax o r spelling errors. Electronically signed by: Trung Phillip M.D. 10/04/2019 8:34 AM
[2019-10-04] MEDS ORDERED: POTASSIUM CHLORIDE 20 MEQ TABCR PO SCH (09:00)
[2019-10-04] MEDS ORDERED: IPRATROPIUM BROMIDE NEB SOLN 0.02% 2.5 ML VIAL INH PRN (11:24)
[2019-10-04] MEDS ORDERED: LEVALBUTEROL 1.25MG/0.5ML NEB INH PRN (11:24)
[2019-10-04] MEDS ORDERED: predniSONE 20 MG TAB PO STA (11:58)
--- NOTE | 2019-10-04 12:28 | Electrocardiogram Report ---
Test Reason : Blood Pressure : / mmHG Vent. Rate : 093 BPM Atrial Rate : 093 BPM P-R Int : 126 ms QRS Dur : 090 ms QT Int : 356 ms P-R-T Axes : 045 004 017 degrees QTc Int : 442 ms Sinus rhythm with Premature supraventricular complexes Nonspecific T wave abnormality Abnormal ECG When compared with ECG of 22-SEP-2019 12:49, Premature ventricular complexes are no longer Present Otherwise no significant change Confirmed by Boby Calvert ([id number]) on 10/04/2019 12:28:00 PM Referred By: REFERRED SELF Confirmed By:Boby Calvert
[2019-10-04] MEDS ORDERED: GLUCOSE 10 TABS/TUBE PO PRN (13:35)
[2019-10-04] MEDS ORDERED: CARBOHYDRATES FOR HYPOGLYCEMIA PO PRN (13:35)
[2019-10-04] MEDS ORDERED: GLUCAGON FOR INJ 1 MG VIAL SQ PRN (13:35)
[2019-10-04] MEDS ORDERED: GLUCOSE 40% GEL 15 GM TUBE PO PRN (13:35)
[2019-10-04] MEDS ORDERED: DEXTROSE 50% 50 ML SYRINGE IV PRN (13:35)
--- NOTE | 2019-10-04 13:45 | Hospitalist Progress Note ---
Date of Service October 04, 2019 Assessment & Plan (1) SOB (shortness of breath): Left Pleural Effusion Atelectasis Pleuritic Chest Pain R/O post pericardiotomy syndrome R/O COVID infection H/O interstitial lung disease H/O CAD S/P CABG --CTA chest:There is no evidence of central pulmonary embolus in the main, lobar, or proximal segmental pulmonary arteries. Cardiomegaly and emphysema. There is a small left pleural effusion with associated basilar consolidation. This likely represents atelectasis. Clinical correlation will be required. There is a 4 mm right upper lobe pulmonary nodule. This is pathologically indeterminant but new from 2007. This can be followed as per the Fleischner criteria. See below. --Received IV Lasix --Trial of Prednisone taper course --Cardiology Consulted --Incentive Spirometry --Continue Isolation precautions until COVID ruled out Right Upper Lobe Pulmonary Nodule Incidental finding on CT scan H/O Tobacco Use Needs follow up as outpatient H/O CAD S/P CABG Continue aspirin, Lipitor, Metoprolol Hypertension BP stable Continue home medications Hyperlipidemia Continue Lipitor H/O Rheumatoid Arthritis Received methotrexate as outpatient recently Prediabetes Last HbA1C:6.3 Continue Insulin sliding scale while on steroids Monitor BGs DVT Px: Lovenox SQ Code Status Full code Admission and Anticipated Discharge Date Admission Date: October 04, 2019 Subjective Patient is seen and examined at bedside Left-sided pleuritic pain much improved today States having dry cough for last few weeks Denies any shortness of breath, dizziness, nausea, abdominal pain Offers no other complaints Review of Systems Review of Systems: All systems reviewed & are unremarkable except as noted in HPI & below Physical Exam Physical Exam: Physical Exam: Vitals signs as noted above General Appearance:Moderately built and nourished, no apparent distress Head: normocephalic, Atraumatic Eyes: normal inspection, EOMI Neck: supple, Trachea midline Respiratory/Chest: Normal breath sounds, CTA, CABG scar Cardiovascular: S1, S2, no murmur Abdomen/GI:Soft, Non tender, Bowel sounds present Extremities/Musculoskelatal:normal inspection, no edema Neurologic/Psych:AAOX3, grossly no focal neurological deficits, + Arthritic Phalanges Skin: normal color, warm Results & Data Results & Data ([facility]) Vital Signs (Past 12 Hours) Vital Signs Temp Pulse Pulse Resp BP Pulse Ox Pulse Ox 10/04/19 12:04 36.4 C L 80 18 129/79 92 10/04/19 08:06 36.8 C 76 18 124/69 95 10/04/19 08:00 88 10/04/19 07:11 68 16 93 10/04/19 04:24 36.7 C 90 16 130/84 90 10/04/19 02:00 96 H 10/04/19 01:59 93 10/04/19 01:55 36.4 C L 96 H 22 100/68 93 Laboratory Results Short CBC 10/03/19 10/04/19 Range/Units 20:34 07:07 WBC 13.51 H 9.69 (4.8-10.8) K/uL Hgb 11.9 L 12.7 (12.0-16.0) g/dL Hct 36.6 L 39.3 (37-47) % Plt Count 407 H 399 (130-400) K/uL BMP 10/03/19 10/04/19 20:34 07:07 Sodium 138 136 Potassium 4.1 3.6 Chloride 106 102 Carbon Dioxide 26 28 BUN 15 14 Creatinine 0.85 0.84 Glucose 114 H 199 H Calcium 9.1 9.6 Cardiac Enzymes 10/03/19 10/04/19 Range/Units 20:34 07:07 Troponin I < 0.015 < 0.015 (0-0.045) ng/ml Liver Function 10/03/19 Range/Units 20:34 Total Bilirubin 0.5 (0.2-1) mg/dl AST 14 L (15-37) U/L ALT 15 (12-78) U/L Alkaline Phosphatase 65 (45-117) U/L Albumin 2.8 L (3.4-5.0) gm/dl
--- NOTE | 2019-10-04 14:17 | Cardiology Consultation ---
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 Given her recent revascularization and the fact that her symptoms resolved with steroids I do not believe any further cardiac testing or intervention is necessary at this time. She is scheduled to establish with [facility] pulmonary medicine as an outpatient and given the fact that her symptoms improved with steroids in the past I would recommend she be started on oral steroid taper at this time. For completeness sake I will also give her an additional dose of diuretics this afternoon for her effusion. 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 Tee Attending Physician: Rey Jin MD History of Present Illness It was my pleasure to see Mrs. Cm in consultation today October 04, 2019. She is a very pleasant 74-year-old woman who was recently established with myself in our cardiology clinic and undergone coronary bypass grafting surgery at [facility] on August 26 of this year. She presents to [facility] emergency department on 10/03/2019 with complaints of sharp left lower back pain along with shortness of breath. She states that she has been in her normal state of health and recovering well after surgery last month. She felt well before going to bed the night before but then woke up with this back pain. She describes very sharp in nature and was associated with shortness of breath. She notes that after sitting up in bed her shortness of breath slowly subsided. She states that this episode is exactly similar episodes she has had in the past with flares of her pulmonary fibrosis. Upon arrival to the emergency department she was found to have a stable left pleural effusion that is been present since surgery and she was given IV steroids along with Lasix. She states that shortly after receiving these medication she is felt much better and notes that steroids have resolved this issue in the past as well. Otherwise, she is been taking her medications as directed and doing well. Past medical history: 1. Coronary artery disease status post CABG x4 with a ASHER to the LAD, vein graft to OM, vein graft to diagonal and vein graft to PDA 2. Pulmonary fibrosis 3. Rheumatoid arthritis 4. History of rheumatoid lung disease 5. Prediabetes Allergies Allergy/AdvReac Type Severity Reaction Status Date / Time codeine Allergy Unknown UNSURE, Verified 10/03/19 21:12 BUT HAD IT BEFORE Home Medications Home Medications Medication Instructions Recorded Confirmed Type acetaminophen [Tylenol Extra 500 mg PO Q6H PRN 09/22/19 10/03/19 History Strength] aspirin [Aspirin Low Dose] 81 mg PO QAM 09/22/19 10/03/19 History atorvastatin 10 mg PO QAM 09/22/19 10/03/19 History folic acid 1 mg PO QAM 09/22/19 10/03/19 History furosemide 80 mg PO QAM 09/22/19 10/03/19 History metoprolol succinate 25 mg PO QAM 09/22/19 10/03/19 History nitroglycerin 0.4 mg SUBLINGUAL UD PRN 09/22/19 10/03/19 History omeprazole 20 mg PO QAM 09/22/19 10/03/19 History ondansetron 4 mg PO Q6 PRN #14 tab 09/22/19 10/03/19 Rx oxycodone 5 mg PO UD 09/22/19 10/03/19 History potassium chloride 10 meq PO QAM 09/22/19 10/03/19 History Patient History Surgical History Hx of CABG Social History Preferred Language: Bulgarian Communication Ability: Effective 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 No acute distress. HEENT: Normocephalic, atraumatic. Pupils equal, round and reactive to light and accommodation. Extraocular muscles are intact. Anicteric sclera. Moist mucous membranes. Neck: No JVD. No bruit. Cardiovascular: Regular. Positive S-4. Normal S-1 and S-2. No S-3. No murmurs or rubs. Pulmonary: Clear to auscultation B/L. No rales, rhonchi or wheezing Abdomen: Bowel sounds x 4, soft. No rebound, guarding or tenderness. No organomegaly. Extremities: No clubbing, cyanosis or edema. +2 pedal pulses bilaterally. Skin: Warm and dry. Results & Data ([facility]) Vital Signs (Past 12 Hours) Vital Signs Temp Pulse Pulse Resp BP Pulse Ox 10/04/19 12:04 36.4 C L 80 18 129/79 92 10/04/19 08:06 36.8 C 76 18 124/69 95 10/04/19 08:00 88 10/04/19 07:11 68 16 93 10/04/19 04:24 36.7 C 90 16 130/84 90 (1) Chest pain Chest pain type: chest pain on breathing Qualified Code(s): R07.1 - Chest pain on breathing
[2019-10-04] MEDS ORDERED: FUROSEMIDE 40 MG in SYRINGE 0 ML IV ONE (17:00)
[2019-10-04] MEDS: INSULIN ASPART 100 UNITS/ML 3 ML PEN SC SCH ×2 (17:59→20:17)
[2019-10-04] MEDS: POTASSIUM CHLORIDE 20 MEQ TABCR PO SCH (17:59)
[2019-10-05 07:14] LABS: COVID-19 Patient Symptomatic? YES; PAN-SARS Coronavirus RNA NEGATIVE (NEGATIVE); SARS CoV2 RNA (COVID-19) NEGATIVE (NEGATIVE); SARS Coronavirus RNA Source NASOPHARYNGEAL
[2019-10-05 07:24] LABS: BUN Creatinine Ratio 30.5 (10-20); Calcium 9.5 mg/dl (8.5-10.1); Creatinine Clr Calc Pharmacy 55.5 ml/min; Est GFR (African American) 73.1; Magnesium 2.4 mg/dl (1.8-2.4)
[2019-10-05] MEDS: PANTOprazole 40 MG TAB PO SCH (07:57)
[2019-10-05] MEDS: POTASSIUM CHLORIDE 20 MEQ TABCR PO SCH (07:57)
[2019-10-05] MEDS: METOPROLOL SUCC 25MG EXT REL TAB PO SCH (07:58)
[2019-10-05] MEDS: ASPIRIN 81 MG ECTAB PO SCH (07:59)
[2019-10-05] MEDS: FOLIC ACID 1 MG TAB PO SCH (07:59)
[2019-10-05] MEDS: guaiFENesin 600 MG TABCR PO SCH (07:59)
[2019-10-05] MEDS: ATORVASTATIN 10 MG TAB PO SCH (07:59)
[2019-10-05] MEDS: ENOXAPARIN INJ 40 MG/0.4 ML SYR SQ SCH (08:10)
[2019-10-05] MEDS: INSULIN ASPART 100 UNITS/ML 3 ML PEN SC SCH ×2 (08:33→13:03)
[2019-10-05] MEDS ORDERED: predniSONE 10 MG TABLET PO SCH (09:00)
[2019-10-05] MEDS ORDERED: LIDOCAINE HCL 1% 20 ML VIAL ONE (11:32)
--- NOTE | 2019-10-05 12:19 | Surgery Consultation ---
Date of Consultation October 05, 2019 Assessment & Plan (1) Suture of skin wound: The suture was embedded fairly deeply. I cleansed the skin with Betadine and then injected 1% Xylocaine. I was then able to elevate the suture and cut it at it its base removing the entire suture. A dressing was placed. History of Present Illness Reason for Consultation: Difficult to remove suture Requesting Physician: Jaswinder Delcid DO Attending Physician: Rey Jin MD History of Present Illness Radha have been asked by Dr. Delcid to see this 74-year-old female who underwent a coronary artery bypass grafting x4 in [place] on August 26. She has a suture on the medial aspect of her right leg that they could not remove. There is no erythema. The has been no bleeding. There is been no drainage from the area where the suture is located. There is no skin erythema. Allergies Allergy/AdvReac Type Severity Reaction Status Date / Time codeine Allergy Unknown UNSURE, Verified 10/03/19 21:12 BUT HAD IT BEFORE Home Medications Home Medications Medication Instructions Recorded Confirmed Type acetaminophen [Tylenol Extra 500 mg PO Q6H PRN 09/22/19 10/03/19 History Strength] aspirin [Aspirin Low Dose] 81 mg PO QAM 09/22/19 10/03/19 History atorvastatin 10 mg PO QAM 09/22/19 10/03/19 History folic acid 1 mg PO QAM 09/22/19 10/03/19 History furosemide 80 mg PO QAM 09/22/19 10/03/19 History metoprolol succinate 25 mg PO QAM 09/22/19 10/03/19 History nitroglycerin 0.4 mg SUBLINGUAL UD PRN 09/22/19 10/03/19 History omeprazole 20 mg PO QAM 09/22/19 10/03/19 History ondansetron 4 mg PO Q6 PRN #14 tab 09/22/19 10/03/19 Rx oxycodone 5 mg PO UD 09/22/19 10/03/19 History potassium chloride 10 meq PO QAM 09/22/19 10/03/19 History Patient History Surgical History Hx of CABG Social History Preferred Language: Kyrgyz Communication Ability: Effective Intermediate Accountant Required: No Beliefs That Will Affect Care: None Current Living Situation: Spouse Other Information That Helps Us Care for You: No Feels Safe at Home: Yes Safety Concerns: Feels Safe At This Time Smoking Status: Never smoker Hx Substance Use: No Physical Exam Physical Exam: Patient has a nylon suture embedded in a small incision on the medial aspect of her right ankle. There is no evidence of infection. Results & Data Vital Signs (Past 12 Hours) Vital Signs Temp Pulse Pulse Resp BP Pulse Ox 10/05/19 11:56 36.7 C 84 18 130/81 94 10/05/19 08:43 90 10/05/19 07:51 36.3 C L 81 14 133/81 95 10/05/19 04:43 36.5 C 98 H 16 133/80 96
--- NOTE | 2019-10-05 12:50 | Hospitalist Progress Note ---
Date of Service October 05, 2019 Assessment & Plan (1) SOB (shortness of breath): Left Pleural Effusion Atelectasis Pleuritic Chest Pain: Likely due to rheumatoid lung disease flare COVID infection: Negative H/O interstitial lung disease H/O CAD S/P CABG --CTA chest:There is no evidence of central pulmonary embolus in the main, lobar, or proximal segmental pulmonary arteries. Cardiomegaly and emphysema. There is a small left pleural effusion with associated basilar consolidation. This likely represents atelectasis. Clinical correlation will be required. There is a 4 mm right upper lobe pulmonary nodule. This is pathologically indeterminant but new from 2007. This can be followed as per the Fleischner criteria. See below. --Received IV Lasix --Continue Prednisone taper course --Appreciate Cardiology Input --Continue Incentive Spirometry --Plan to discharge on Lasix PRN Right Upper Lobe Pulmonary Nodule Incidental finding on CT scan H/O Tobacco Use Needs follow up as outpatient H/O CAD S/P CABG Continue aspirin, Lipitor, Metoprolol Hypertension BP stable Continue home medications Hyperlipidemia Continue Lipitor H/O Rheumatoid Arthritis Received methotrexate as outpatient recently Continue Prednisone Taper Prediabetes Last HbA1C:6.3 Continue Insulin sliding scale while on steroids Monitor BGs DVT Px: Lovenox SQ Code Status Full code Admission and Anticipated Discharge Date Admission Date: October 04, 2019 Subjective Patient is seen and examined at bedside Doing well today No new complaints Left-sided pleuritic pain resolved Has dry cough but improving Denies any chest pain shortness of breath, dizziness, nausea, abdominal pain Discussed with Cardiology today Review of Systems Review of Systems: All systems reviewed & are unremarkable except as noted in HPI & below Physical Exam Physical Exam: Physical Exam: Vitals signs as noted above General Appearance:Moderately built and nourished, no apparent distress Head: normocephalic, Atraumatic Eyes: normal inspection, EOMI Neck: supple, Trachea midline Respiratory/Chest: Normal breath sounds, CTA, CABG scar Cardiovascular: S1, S2, no murmur Abdomen/GI:Soft, Non tender, Bowel sounds present Extremities/Musculoskelatal:normal inspection, no edema Neurologic/Psych:AAOX3, grossly no focal neurological deficits, + Arthritic Phalanges Skin: normal color, warm Results & Data Results & Data ([facility]) Vital Signs (Past 12 Hours) Vital Signs Temp Pulse Pulse Resp BP Pulse Ox 10/05/19 11:56 36.7 C 84 18 130/81 94 10/05/19 08:43 90 10/05/19 07:51 36.3 C L 81 14 133/81 95 10/05/19 04:43 36.5 C 98 H 16 133/80 96 Laboratory Results [facility] 10/05/19 06:15 Sodium 139 Potassium 4.0 Chloride 104 Carbon Dioxide 29 BUN 28 H D Creatinine 0.91 Glucose 117 H Calcium 9.5
--- NOTE | 2019-10-05 13:11 | Discharge Summary ---
Date of Service October 05, 2019 Admission HPI Per Admitting Provider History obtained from patient and records. Medical history significant for diastolic dysfunction as per records (EF 50% 08/2019), CAD status post CABG, RA-ILD/COPD as per records, rheumatoid arthritis, hypertension, hyperlipidemia, mitral regurgitation, prediabetes as per records, past tobacco abuse. Recent confinement to [facility] under CT surgery service last month for CAD status post CABG. Persistent pleural effusions noted on CXR since surgery last month. Intraoperative BEKA showed EF 50 to 54%, mild to moderate secondary mitral regurgitation. Patient discharged on daily Lasix. Patient seen at the ER 2 weeks ago for bowel issues that have since resolved. Doing well on outpatient follow-up with CT surgeon last week as per notes. Diffuse aches noted about 2 weeks ago attributed to being off rheumatoid arthritis meds since surgery. Patient received 1 dose of methotrexate outpatient last week. 2 days history of dry cough symptoms, pleuritic left-sided chest pain and shortness of breath mostly on exertion. No fever. Poor appetite. Some wheezing at home as per patient. Not sure about sick contacts given recent confinement/ER visit. No recent metropolitan/out of country travel travel. No unusual fluid retention. Patient brought to the ER for evaluation. 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 Systolic murmur ABDOMEN: Some distention, nontender EXTREMITIES : Minimal LE swelling, no LE tenderness, no other conspicuous deformities noted NEUROLOGIC : Coherent, no facial asymmetry, no other gross focality, mild hearing impairment Principal Diagnosis Left Pleural Effusion Atelectasis Pleuritic Chest Pain Right Upper Lobe Pulmonary Nodule Discharge Data Allergies Allergy/AdvReac Type Severity Reaction Status Date / Time codeine Allergy Unknown UNSURE, Verified 10/03/19 21:12 BUT HAD IT BEFORE Consultations 10/03/19 23:46 ED Decision to Admit Stat 10/04/19 01:59 Consult Cardiology Routine 10/05/19 10:51 Consult General Surgery Routine Procedures Performed CTA chest:There is no evidence of central pulmonary embolus in the main, lobar, or proximal segmental pulmonary arteries. Cardiomegaly and emphysema. There is a small left pleural effusion with associated basilar consolidation. This likely represents atelectasis. Clinical correlation will be required. There is a 4 mm right upper lobe pulmonary nodule. This is pathologically indeterminant but new from 2007. This can be followed as per the Fleischner criteria. See below. Ordered Studies 10/03/19 21:35 CT angio chest PE protocol Stat Hospital Course (1) SOB (shortness of breath): Left Pleural Effusion Atelectasis Pleuritic Chest Pain: Likely due to rheumatoid lung disease flare COVID infection: Negative H/O interstitial lung disease H/O CAD S/P CABG --CTA chest:There is no evidence of central pulmonary embolus in the main, lobar, or proximal segmental pulmonary arteries. Cardiomegaly and emphysema. There is a small left pleural effusion with associated basilar consolidation. This likely represents atelectasis. Clinical correlation will be required. There is a 4 mm right upper lobe pulmonary nodule. This is pathologically indeterminant but new from 2007. This can be followed as per the Fleischner criteria. See below. --Previously on lasix 80mg daily post CABG--given for only 30 days --Received IV Lasix during hospitalization --Continue Prednisone taper course --Appreciate Cardiology Input --Continue Incentive Spirometry --Plan to discharge on 20mg Lasix PRN Right Upper Lobe Pulmonary Nodule Incidental finding on CT scan H/O Tobacco Use Needs follow up as outpatient H/O CAD S/P CABG Continue aspirin, Lipitor, Metoprolol Hypertension BP stable Continue home medications Hyperlipidemia Continue Lipitor H/O Rheumatoid Arthritis Received methotrexate as outpatient recently Continue Prednisone Taper Prediabetes Last HbA1C:6.3 Continue Insulin sliding scale while on steroids Monitor BGs DVT Px: Lovenox SQ Code Status Full code Total Time Total Time Spent Total Time Spent (In Minutes): 40 minutes Total Time Includes: Examination of the Patient, Discharge Planning, Medication Reconciliation, Communication With Other Providers and Other Discharge Plan Discharge Items Patient Disposition: Home - Self-Care Reason For Visit: CHF Discharge Diagnosis: Pleural Effusion Pleuritic chest pain Pulmonary Nodule Condition on Discharge: Good Activity: Resume your previous activity Exercise/Sports: Gradually increase as tolerated Non-emergency contact: Primary Care Provider and [facility] In Call non-emergency contact if: you have any medication questions, your symptoms worsen, your pain is not controlled, your pain is worsening, your pain is unusual for you, your pain is concerning for you and you have a fever Follow-up/Referrals: Jah Lyon MD [Primary Care Provider] - 10/10/19 2:00 pm (10/10/2019 2:00 PM Gregg Watts DO PLEASE NOTE: all hospital discharge follow up appointments are now by telephone. The physician will call you at your appointed time. Please do not go into the office. ) Diet: Carb Consistent or DM2 and Heart Healthy Addtl Attending Provider Instructions: Follow up with your Primary Care Physician in 1 week Follow up with your Putter In in 2-4 weeks Follow up with your Miller Supervisor in 2-3 weeks Complete the Prednisone Taper Course as prescribed Prednisone Course: Start taking Prednisone 40mg for 1 day and then 30 mg for 3 days, then 20mg for 3 days and 10mg for [address] days and STOP Your CT scan showed Right Upper Lobe Pulmonary Nodule. Please follow up with your Primary Care Physician/Putter In for further evaluation. Take Lasix 20mg daily as needed for increased leg swelling/weight gain. Discuss with your Physician for assistance. Seek immediate medical attention if your symptoms reoccur or worsen Call your Primary Care doctor if any of the following symptoms or problems start or get worse: * Shortness of breath or difficulty breathing * Wake up at night short of breath * Chest pain * Cough * Swelling of your hands, feet, or legs * More fatigued or tired with your normal activity * Palpitations - sudden fast heart beats WEIGHT * Weigh yourself every morning after using the bathroom. * Use the same scale. * Wear the same amount of clothing. * Write your weight down on a chart. * Call your Primary Care doctor if you gain more than 2-3 pounds in 1-2 days. MEDICATIONS * Use this discharge instruction sheet for medication instructions. * Take your medications at the time your doctor ordered. * Do not skip a dose of your medicines. * If you miss a dose of medicine, take it as soon as possible, but DO NOT DOUBLE A DOSE. * Read your medicine information when you get home. * Know all of the side effects of your medicine. If in doubt, ask your pharmacist * Call your Primary Care doctor's office if you have any side effects. * Be sure all of your doctors know what medicine and herbs you take (including cold, flu, and herbal medicine). Take the following with you to your follow-up doctor appointments: * Weight Chart * Medication List * List of questions Do not drink excessive alcohol, beer or wine. Pending Studies at Discharge: No Stand-Alone Forms: My [facility], Smoking Cessation Medications and DC Order Prescriptions: New furosemide [Lasix] 20 mg tablet 20 mg PO UD PRN (Reason: edema) Qty: 60 RF: 0 prednisone 10 mg tablet 10 mg PO UD Qty: 22 RF: 0 Continued atorvastatin 10 mg tablet 10 mg PO QAM RF: 0 aspirin [Aspirin Low Dose] 81 mg Tablet,Delayed Release (Dr/Ec) 81 mg PO QAM RF: 0 acetaminophen [Tylenol Extra Strength] 500 mg Tablet 500 mg PO Q6H PRN (Reason: Pain) RF: 0 nitroglycerin 0.4 mg tablet, sublingual 0.4 mg sublingual UD PRN (Reason: Chest Pain) RF: 0 omeprazole 20 mg capsule,delayed release(DR/EC) 20 mg PO QAM RF: 0 folic acid 1 mg Tablet 1 mg PO QAM RF: 0 metoprolol succinate 25 mg tablet extended release 24 hr 25 mg PO QAM RF: 0 oxycodone 5 mg tablet 5 mg PO UD RF: 0 potassium chloride 10 mEq tablet,ER particles/crystals 10 meq PO QAM RF: 0 ondansetron 4 mg tablet,disintegrating 4 mg PO Q6 PRN (Reason: nausea and vomiting) Qty: 14 RF: 0 Discontinued furosemide 80 mg tablet 80 mg PO QAM RF: 0 Discharge Orders: Discharge Order (Routine); Ordered 10/05/19 Ordered By: Rey Snider/Other Patient Handouts: Pleural Effusion, Prednisone tablets, Furosemide tablets Admission Data Admit Date/Time: 10/04/19 00:44 Attending Provider: Rey Jin Admit Provider: Trever Carroll Primary Care Provider: Jah Lyon Other Providers: Trever Carroll ; Chemo Burrell ; Nick Anaya Other Interventions: Discharge Summary Assessment (RN) Last Done: 10/05/19 14:52 DC Date/Time DO NOT enter until pt leaves facility: 10/05/19 15:37
--- NOTE | 2019-10-05 14:51 | Cardiology Progress Note ---
Date of Service October 05, 2019 Assessment & Plan (1) SOB (shortness of breath): (2) Chest pain: It appears that this episode appears to be more of a flare of her rheumatoid lung disease rather than an ischemic event. No recurrence since receiving initial dose of steroids. States that she is feeling much better now. Would DC home with a steroid taper. Follow-up with PCP as an outpatient. (3) Pleural effusion: Stable status post CABG Did diurese well after receiving IV Lasix. Would DC home with Lasix 20 mg p.o. daily as needed volume overload signs and symptoms reviewed with the patient. (4) Rheumatoid lung disease: Scheduled to establish with a new industrial engineering through [facility] as an outpatient (5) CAD (coronary artery disease): 1 month status post CABG x4 Stable Subjective Patient seen and examined, states that she feels well. States that she still has a stitch in her lower extremity from her vein graft harvesting site. Denies any complaints of chest pain, shortness of breath, palpitations, lightheadedness, dizziness or syncope. Telemetry reviewed: Normal sinus rhythm without arrhythmia or any significant ectopy. Review of Systems Review of Systems: All systems reviewed & are unremarkable except as noted in HPI & below Physical Exam Physical Exam: General: Awake, alert and oriented x 3. No acute distress. HEENT: Normocephalic, atraumatic. Pupils equal, round and reactive to light and accommodation. Extraocular muscles are intact. Anicteric sclera. Moist mucous membranes. Neck: No JVD. No bruit. Cardiovascular: Regular. Positive S-4. Normal S-1 and S-2. No S-3. No murmurs or rubs. Pulmonary: Clear to auscultation B/L. No rales, rhonchi or wheezing Abdomen: Bowel sounds x 4, soft. No rebound, guarding or tenderness. No organomegaly. Extremities: No clubbing, cyanosis or edema. +2 pedal pulses bilaterally. Skin: Warm and dry. Results & Data Vital Signs (Past 12 Hours) Vital Signs Temp Pulse Pulse Resp BP Pulse Ox 10/05/19 11:56 36.7 C 84 18 130/81 94 10/05/19 08:43 90 10/05/19 07:51 36.3 C L 81 14 133/81 95 04/10/20 04:43 36.5 C 98 H 16 133/80 96 (1) Chest pain Chest pain type: chest pain on breathing Qualified Code(s): R07.1 - Chest pain on breathing
== END 2019-10-05 15:37 | disposition home or self-care (01) | DRG 197 ==
LOC: ED 20:00 → 2S 10-04 00:44

== ENCOUNTER 2022-03-15 09:28 | Inpatient (IN) ==
--- NOTE | 2022-03-15 10:18 | Communication Note ---
Date of Service: March 15, 2022 I personally obtained a history from and examined the patient. Refer to Dr. Dsouza's note for further details.
--- NOTE | 2022-03-15 10:20 | Emergency Department Note ---
Impression & Plan Acute CVA (cerebrovascular accident), Pulmonary edema ED Provider Note Name: FRANK BAKER Age: 76 Sex: F Arrives Via: Walk-In Informant: Patient, daughter, granddaughter ED Provider: Adonay Dsouza MD Chief Complaint: Speech difficulty Impression: As per impressions above Medical Decision Makin-year-old female with a history of rheumatoid arthritis, hypertension, GERD, hyperlipidemia arrives for evaluation of difficulty with word finding and some aphasia over the last 2 to 3 days. On examination she has no neurologic deficits and has an NIH of 0. She is not a tPA or intervention candidate. Thus a stroke alert was not called. She does have some shortness of breath and a cough this chest x-ray obtained which does reveal some pulmonary edema though she is not hypoxic significantly. Laboratory work-up is remarkable for mildly elevated troponin of unknown specific etiology. A CT of her head does show an acute new infarct. Her EKG is normal sinus rhythm with some inverted lateral T waves which are somewhat different than previous though she denies any chest pain. Unclear exact etiology of why stroke but could be embolic and may be she is in pulmonary edema from going in and out of arrythmia? which would also cause the elevated troponin. She will need further monitoring including new stroke. She was given a dose of aspirin as no evidence of bleeding or history of bleeding issues. She and family are comfortable with plan for stenting. Prior Medical Record and Triage/Nursing Notes reviewed by Me Additional history obtained from chart Differentials:Infection, dehydration, metabolic abnormality, hypo/hyperglycemia, electrolyte disturbance, anemia, hypoxia, cardiac sources, intracerebral event, toxicologic, neurologic, as well as other pathologies. Vital Signs: reviewed and remarkable for HTN Interventions: asa 324mg po Labs:Reviewed and remarkable for elevated troponin Imaging:Reveals bilateral pulmonary edema findings. CT of the head reveals acute stroke as per radiologist EKG:Per My Interpretation: Indication Stroke like symptoms: NSR 97 bpm, qtc 462. Lateral T wave inversions. No Ectopy. No Ischemia. Compared to EKG 10/03/19 there are lateral T wave inversions Consults:Dr Dena Pedraza Hospitalist Plan: Disposition:Hospitalization. Condition: Good History of Present Illness:76-year-old female arrives for evaluation of c onfusion. Patient with several days of difficulty remembering things and difficulty remembering what to say. She is forgotten how to use her cell phone as well as has trouble remembering what she does for living. She denies any headache, focal neurologic deficits, slurred speech, falls, seizures no other symptoms. She says she feels quite fine otherwise. She has had no recent changes to her medications or other events. She has chronic COPD follows with pulmonology no change to her chronic shortness of breath recently. She is taken no medications for the confusion. She denies any urinary symptoms, fevers, chills, shortness of breath, chest pain or other symptoms. Nothing makes his sy mptoms better or worse. Denies any previous neurologic issues. She does have a history of CABG, hypertension, dyslipidemia. She takes aspirin daily without any other blood thinners. ROS: See above HPI for pertinent positives & negatives. A total of 10 systems reviewed and were otherwise negative. Past Medical History:See Below Past Surgical History:See Below Family History:See Below Social History:See Below Home Medications:See Below Allergies:codeine Vitals:Blood Pressure: 160/80, Pulse 100, RR 22, T 36.4C, O2 94% on RA Physical Exam: GENERAL: Patient is mildly anxious appearing and in minimal distress. EYES: No scleral icterus, unremarkable pupils. ENT: Mucous membranes moist, no nasal congestion. NECK: No masses appreciated, nomeningismus, trachea is midline. RESPIRATORY: No dyspnea. Clear to auscultation and equal bilaterally. No wheeze, no rhonchi. CARDIOVASCULAR: mild tachy.No murmurs, rubs, gallops appreciated. GASTROINTESTINAL: Abdomen soft, non-tender, no peritonitis.Bowel sounds positive.No masses appreciated. BACK: No midline tenderness, no CVA tenderness EXTREMITIES: Normal motion all extremities, no cyanosis, no edema. NEUROLOGIC: Periodic episodes of word-finding issues & forgetfulness. Otherwise alert and oriented, no acute motor or sensory deficits, no focal weakness, cranial nerves grossly intact. SKIN: No rash, no jaundice, no diaphoresis. 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 Beliefs That Will Affect Care: None Current Living Situation: Spouse Feels Safe at Home: Yes Assistive Devices: None Allergies Allergies Allergy/AdvReac Type Severity Reaction Status Date / Time codeine Allergy Unknown UNSURE, Verified 01/13/21 17:56 BUT HAD IT BEFORE Home Meds Home Medications Medication Instructions Recorded Confirmed aspirin 81 mg tablet,delayed 81 mg PO QAM 09/22/19 03/15/22 release (Jemma Low Dose Aspirin) atorvastatin 10 mg tablet 10 mg PO QAM 09/22/19 03/15/22 folic acid 1 mg tablet 1 mg PO QAM 09/22/19 03/15/22 metoprolol succinate 25 mg 25 mg PO QAM 09/22/19 03/15/22 tablet,extended release 24 hr omeprazole 20 mg capsule,delayed 20 mg PO QAM 09/22/19 03/15/22 release hydroxychloroquine 200 mg tablet 200 mg PO BID 01/13/21 03/15/22 methotrexate sodium 2.5 mg tablet 20 mg PO WK 01/13/21 03/15/22 prednisone 10 mg tablet 0 mg PO DIRECTED PRN ARTHRITIS 01/13/21 03/15/22 FLARE UPS Results & Data (ED) Vital Signs Vital Signs - 24 hr 03/15/22 09:36 03/15/22 10:12 03/15/22 10:30 Temperature 36.4 C L Temperature Source Oral Pulse Rate 100 H 97 H Pulse Rate from SpO2 Sensor 103 H 95 H Pulse Rhythm Regular Pulse Strength Normal Respiratory Rate 22 26 H Respiratory Effort / Characteristics Non-Labored Spontaneous Respiratory Depth Normal Blood Pressure 160/80 H 146/78 H 121/70 Blood Pressure Mean 106 100 87 Blood Pressure Position Sitting Pulse Oximetry 94 95 92 Oxygen Delivery Method Room Air Room Air Room Air Sepsis Recent Fever Within 48 Hours No Sepsis New/Unexplained Change in Mental Status No Sepsis Action Taken by Nursing No Action Required 03/15/22 11:00 03/15/22 11:13 03/15/22 11:30 Temperature Temperature Source Pulse Rate 82 100 H 86 Pulse Rate from SpO2 Sensor 86 102 H Pulse Rhythm Pulse Strength Respiratory Rate 27 H 17 19 Respiratory Effort / Characteristics Respiratory Depth Blood Pressure 127/71 154/93 H 120/62 Blood Pressure Mean 89 113 81 Blood Pressure Position Pulse Oximetry 92 92 94 Oxygen Delivery Method Room Air Room Air Room Air Sepsis Recent Fever Within 48 Hours Sepsis New/Unexplained Change in Mental Status Sepsis Action Taken by Nursing 03/15/22 12:00 03/15/22 12:30 Temperature Temperature Source Pulse Rate 88 89 Pulse Rate from SpO2 Sensor 86 89 Pulse Rhythm Pulse Strength Respiratory Rate 20 23 Respiratory Effort / Characteristics Respiratory Depth Blood Pressure 138/84 154/94 H Blood Pressure Mean 102 114 Blood Pressure Position Pulse Oximetry 92 91 Oxygen Delivery Method Room Air Room Air Sepsis Recent Fever Within 48 Hours Sepsis New/Unexplained Change in Mental Status Sepsis Action Taken by Nursing Laboratory Data Result diagrams: 03/15/22 10:26 03/15/22 10:26 Lab Results 03/15/22 03/15/22 03/15/22 Range/Units 10:14 10:23 10:26 WBC 10.82 H (4.8-10.8) K/ul RBC 4.31 (3.93-5.22) M/uL Hgb 12.4 (12.0-16.0) g/dl Hct 39.8 (34.1-44.9) % MCV 92.3 (80.0-100.0) fL MCH 28.8 (25.0-34.0) pg MCHC 31.2 L (32.0-36.0) g/dL RDW Std Deviation 48.2 H (36.4-46.3) fL RDW Coeff of Jacquelyn 14.2 (11.5-14.5) % Plt Count 309 (130-400) K/uL MPV 10.2 (9.4-12.3) fL Immature Gran % (Auto) 0.5 % Neut % (Auto) 81.6 % Lymph % (Auto) 9.9 % Holt % (Auto) 6.4 % Eos % (Auto) 1.3 % Baso % (Auto) 0.3 % Neut # (Auto) 8.84 H (1.4-6.5) K/uL Lymph # (Auto) 1.07 L (1.2-3.4) K/uL Holt # (Auto) 0.69 (0.24-0.82) K/uL Eos # (Auto) 0.14 (0-0.50) K/uL Baso # (Auto) 0.03 (0-0.2) K/uL Immature Gran # (Auto) 0.05 H (0.00-0.02) K/uL Sodium (136-145) mmol/L Potassium (3.5-5.1) mmol/L Chloride (98-107) mmol/L Carbon Dioxide (21-32) mmol/L Anion Gap (3-11) BUN (6-23) mg/dl Creatinine (0.6-1.2) mg/dl Est Cr Clr Drug Dosing ml/min Est GFR ( Amer) ml/min Est GFR (Non-Af Amer) ml/min BUN/Creatinine Ratio (10-20) Glucose (70-99(Fasting)) mg/dl Calcium (8.5-10.1) mg/dl Magnesium (1.7-2.4) mg/dl Total Bilirubin (0.2-1.0) mg/dl Direct Bilirubin (0-0.2) mg/dl AST (13-39) U/L ALT (7-52) U/L Alkaline Phosphatase (34-104) U/L Troponin I High Sens (0-14) pg/ml Total Protein (6.0-8.3) gm/dl Albumin (3.4-5.0) gm/dl Urine Color Yellow Urine Appearance Clear (Clear) Urine pH 8.5 H (4.5-7.5) Ur Specific [place] 1.023 (1.000-1.030) Urine Protein Trace H (Negative) Urine Glucose (UA) Negative (Negative) Urine Ketones Negative (Negative) Urine Blood Negative (Negative) Urine Nitrite Negative (Negative) Urine Bilirubin Negative (Negative) Urine Urobilinogen Negative (Negative) Ur Leukocyte Esterase Trace H (Negative) Urine WBC (Auto) 1-5 (0-5) /hpf Urine RBC (Auto) 0-4 (0-4) /hpf U Hyaline Cast (Auto) 1-5 (0-5) /lpf U Epithel Cells (Auto) 20-30 H (0-5) /lpf Urine Bacteria (Auto) Negative (Negative) SARS-CoV-2, RNA, NAAT NEGATIVE (NEGATIVE) 03/15/22 Range/Units 10:26 WBC (4.8-10.8) K/ul RBC (3.93-5.22) M/uL Hgb (12.0-16.0) g/dl Hct (34.1-44.9) % MCV (80.0-100.0) fL MCH (25.0-34.0) pg MCHC (32.0-36.0) g/dL RDW Std Deviation (36.4-46.3) fL RDW Coeff of Jacquelyn (11.5-14.5) % Plt Count (130-400) K/uL MPV (9.4-12.3) fL Immature Gran % (Auto) % Neut % (Auto) % Lymph % (Auto) % Holt % (Auto) % Eos % (Auto) % Baso % (Auto) % Neut # (Auto) (1.4-6.5) K/uL Lymph # (Auto) (1.2-3.4) K/uL Holt # (Auto) (0.24-0.82) K/uL Eos # (Auto) (0-0.50) K/uL Baso # (Auto) (0-0.2) K/uL Immature Gran # (Auto) (0.00-0.02) K/uL Sodium 140 (136-145) mmol/L Potassium 4.5 (3.5-5.1) mmol/L Chloride 105 (98-107) mmol/L Carbon Dioxide 29 (21-32) mmol/L Anion Gap 6 (3-11) BUN 16 (6-23) mg/dl Creatinine 0.81 (0.6-1.2) mg/dl Est Cr Clr Drug Dosing 62.7 ml/min Est GFR ( Amer) 82.9 ml/min Est GFR (Non-Af Amer) 71.5 ml/min BUN/Creatinine Ratio 19.8 (10-20) Glucose 122 H (70-99(Fasting)) mg/dl Calcium 9.7 (8.5-10.1) mg/dl Magnesium 1.8 (1.7-2.4) mg/dl Total Bilirubin 0.7 (0.2-1.0) mg/dl Direct Bilirubin 0.1 (0-0.2) mg/dl AST 17 (13-39) U/L ALT 18 (7-52) U/L Alkaline Phosphatase 50 (34-104) U/L Troponin I High Sens 22.1 H (0-14) pg/ml Total Protein 6.8 (6.0-8.3) gm/dl Albumin 4.1 (3.4-5.0) gm/dl Urine Color Urine Appearance (Clear) Urine pH (4.5-7.5) Ur Specific [place] (1.000-1.030) Urine Protein (Negative) Urine Glucose (UA) (Negative) Urine Ketones (Negative) Urine Blood (Negative) Urine Nitrite (Negative) Urine Bilirubin (Negative) Urine Urobilinogen (Negative) Ur Leukocyte Esterase (Negative) Urine WBC (Auto) (0-5) /hpf Urine RBC (Auto) (0-4) /hpf U Hyaline Cast (Auto) (0-5) /lpf U Epithel Cells (Auto) (0-5) /lpf Urine Bacteria (Auto) (Negative) SARS-CoV-2, RNA, NAAT (NEGATIVE) Administered Medications Ioversol (Optiray 300 500ml) 120 ml IV ONCE ONE Stop: 03/15/22 14:31 Last Admin: 03/15/22 14:18 Dose: 120 ml Documented By: BRM Discontinued Medications Aspirin (Aspirin Chew 324 Mg) 324 mg PO NOW STA Stop: 03/15/22 11:47 Last Admin: 03/15/22 12:15 Dose: 324 mg Documented By: [place] Imaging Data Radiologist's Impression: Chest X-Ray 03/15/22 10:09 XR chest 1V portable HISTORY: 76 years-old Female weakness, confusion acute weakness with confusion COMPARISON: Chest radiograph 10/04/2019 TECHNIQUE: Portable AP view the chest FINDINGS: Cardiac silhouette is enlarged. Prior median sternotomy. Pulmonary vascular congestion with reticular interstitial densities. No pneumothorax. Small pleural effusions with mild bibasilar opacities. Degenerative changes of the shoulders and spine. IMPRESSION: 1. Cardiomegaly with pulmonary edema. 2. Small pleural effusions with mild bibasilar opacities suggestive of atelectasis. Pneumonia could appear similarly. ACT 112: Negative or not required by law. The above report was generated using voice recognition software. It may contain grammatical, syntax or spelling errors. Electronically signed by: Juan C Phillip M.D. 03/15/2022 10:[address] 03/15/22 10:09 CT head/brain wo con CLINICAL HISTORY: worsening confusion, forgetfulness Technique: Contiguous axial CT images of the head were acquired from the base of the skull to the vertex without intravenous contrast administration. Images were viewed in brain, subdural and bone windows. Automated dose lowering techniques and/or adjustment according to patient size were utilized for this exam. Comparison: None available at the time of this dictation. Findings: Areas of decreased attenuation are present in the periventricular and subcortical white matter bilaterally consistent with small vessel ischemic disease. Generalized cerebral volume loss with commensurate enlargement of the ventricles, sulci, and cisterns is also present. There is hypodensity and loss of minor-white differentiation in the left posterior watershed concern for acute infarct. There is minimal mass effect and rightward midline shift of approximately 4 mm. Imaged portions of the paranasal sinuses and mastoid air cells are clear. The orbits appear normal. There are no acute fractures of the calvaria or scalp swelling. Impression: Hypodensity in the left posterior watershed is concerning for acute infarct. No definite hemorrhage is seen by CT. There is minimal mass effect or midline shift. ACT 112: Negative or not required by law. Electronically signed by: Leo Pozo M.D. 03/15/2022 11:31 AM Discharge Plan Visit Data Chief Complaint: Confusion Stated Complaint: CONFUSION ED Provider: Adonay Dsouza Discharge Problem: Acute CVA (cerebrovascular accident), Pulmonary edema Patient Disposition: Admitted As Inpatient Discharge Instructions Interventions: ED Discharge Assessment Last Done: 03/15/22 13:09 Forms Stand Alone Forms: My [facility] Prescriptions Prescriptions: No Action atorvastatin 10 mg tablet 10 mg PO QAM aspirin [Jemma Low Dose Aspirin] 81 mg Tablet,Delayed Release (Dr/Ec) 81 mg PO QAM omeprazole 20 mg capsule,delayed release(DR/EC) 20 mg PO QAM folic acid 1 mg Tablet 1 mg PO QAM metoprolol succinate 25 mg tablet extended release 24 hr 25 mg PO QAM methotrexate sodium 2.5 mg tablet 20 mg PO WK Rx Instructions: TAKES ON FRIDAYS hydroxychloroquine 200 mg tablet 200 mg PO BID prednisone 10 mg tablet 0 mg PO DIRECTED PRN (Reason: ARTHRITIS FLARE UPS) Referrals Referrals: Jah Lyon MD [Primary Care Provider] - : Pulmonary edema Qualifiers: Chronicity: acute Qualified Code(s): J81.0 - Acute pulmonary edema
--- NOTE | 2022-03-15 10:31 | XRay Report ---
XR chest 1V portable HISTORY: 76 years-old Female weakness, confusion acute weakness with confusion COMPARISON: Chest radiograph 10/04/2019 TECHNIQUE: Portable AP view the chest FINDINGS: Cardiac silhouette is enlarged. Prior median sternotomy. Pulmonary vascular congestion with reticular interstitial densities. No pneumothorax. Small pleural effusions with mild bibasilar opacities. Dege nerative changes of the shoulders and spine. IMPRESSION: 1. Cardiomegaly with pulmonary edema. 2. Small pleural effusions with mild bibasilar opacities suggestive of atelectasis. Pneumonia could a ppear similarly. ACT 112: Negative or not required by law. The above report was generated using voice recognition software. It may contain grammatical, syntax o r spelling errors. Electronically signed by: Juan C Phillip M.D. 03/15/2022 10:29 AM
[2022-03-15 10:35] LABS: Appearance Urine Clear (Clear); Bacteria Urine Automated Negative (Negative); Bilirubin Urine Negative (Negative); Blood Urine Negative (Negative); Color Urine Yellow; Epithelial Cell Urine Auto 20-30 /lpf (0-5); Glucose Urine UA Negative (Negative); Ketones Urine Negative (Negative); Leukocyte Esterase Urine Trace (Negative); Nitrite Urine Negative (Negative); RBC Urine Automated 0-4 /hpf (0-4); Specific Gravity Urine 1.023 (1.000-1.030); Urobilinogen Urine Negative (Negative); pH Urine 8.5 (4.5-7.5)
[2022-03-15 10:39] LABS: Basophils # (auto) 0.03 K/uL (0-0.2); Basophils % (auto) 0.3 %; Eosinophils # (auto) 0.14 K/uL (0-0.50); Eosinophils % (auto) 1.3 %; Hematocrit (blood only) 39.8 % (34.1-44.9); Hemoglobin 12.4 g/dl (12.0-16.0); Immature Granulocytes # (auto) 0.05 K/uL (0.00-0.02); Immature Granulocytes % (auto) 0.5 %; Lymphocytes # (auto) 1.07 K/uL (1.2-3.4); Lymphocytes % (auto) 9.9 %; Mean Corpuscular Hemoglobin 28.8 pg (25.0-34.0); Mean Corpuscular Hgb Conc 31.2 g/dL (32.0-36.0); Mean Corpuscular Volume 92.3 fL (80.0-100.0); Mean Platelet Volume 10.2 fL (9.4-12.3); Monocytes # (auto) 0.69 K/uL (0.24-0.82); Monocytes % (auto) 6.4 %; Neutrophils # (auto) 8.84 K/uL (1.4-6.5); Neutrophils % (auto) 81.6 %; Platelet Count 309 K/uL (130-400); RDW Coefficient of Variation 14.2 % (11.5-14.5); RDW Standard Deviation 48.2 fL (36.4-46.3); Red Blood Count 4.31 M/uL (3.93-5.22); White Blood Count 10.82 K/ul (4.8-10.8)
[2022-03-15 11:06] LABS: Albumin Level 4.1 gm/dl (3.4-5.0); BUN Creatinine Ratio 19.8 (10-20); Bilirubin Direct 0.1 mg/dl (0-0.2); Bilirubin,Total 0.7 mg/dl (0.2-1.0); Calcium 9.7 mg/dl (8.5-10.1); Creatinine Clr Calc Pharmacy 62.7 ml/min; Est GFR (African American) 82.9 ml/min; Est GFR (Non-African American) 71.5 ml/min; Magnesium 1.8 mg/dl (1.7-2.4); Potassium 4.5 mmol/L (3.5-5.1); Total Protein 6.8 gm/dl (6.0-8.3)
[2022-03-15 11:07] LABS: Troponin I High Sensitivity 22.1 pg/ml (0-14)
--- NOTE | 2022-03-15 11:32 | CT Scan Report ---
CT head/brain wo con CLINICAL HISTORY: worsening confusion, forgetfulness Technique: Contiguous axial CT images of the head were acquired from the base of the skull to the sadie gerardo without intravenous contrast administration. Images were viewed in brain, subdural and bone [facility] ws. Automated dose lowering techniques and/or adjustment according to patient size were utilized for this exam. Comparison: None available at the time of this dictation. Findings: Areas of decreased attenuation are present in the periventricular and subcortical white matter bilate rally consistent with small vessel ischemic disease. Generalized cerebral volume loss with commensura te enlargement of the ventricles, sulci, and cisterns is also present. There is hypodensity and loss of minor-white differentiation in the left posterior watershed concern for acute infarct. There is mi nimal mass effect and rightward midline shift of approximately 4 mm. Imaged portions of the paranasal sinuses and mastoid air cells are clear. The orbits appear normal. There are no acute fractures of the calvaria or scalp swelling. Impression: Hypodensity in the left posterior watershed is concerning for acute infarct. No definite hemorrhage i s seen by CT. There is minimal mass effect or midline shift. ACT 112: Negative or not required by law. Electronically signed by: Leo Pozo M.D. 03/15/2022 11:31 AM
[2022-03-15 11:35] LABS: Protein Urine Trace (Negative)
[2022-03-15] MEDS ORDERED: ASPIRIN CHEW 324 MG PO STA (11:46)
--- NOTE | 2022-03-15 12:05 | History & Physical Report ---
Date of Service March 15, 2022 Assessment & Plan (1) Acute CVA (cerebrovascular accident): (2) Pleural effusion: (3) COPD (chronic obstructive pulmonary disease): (4) CAD (coronary artery disease): (5) HLD (hyperlipidemia): (6) HTN (hypertension): (7) Rheumatoid arthritis: Plan Ms. Cm is a 76 year old female who presented to the [facility] with altered mental status and forgetfulness. She reports forgetting her cell phone # and what she did for her career. 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 She denied any slurred speech, she takes a baby asa at baseline. Patient has an extensive PMH that includes ILD, RA, COPD, HLD, CAD s/p CABG x4 in 2019, HLD, nocturnal hypoxia, and GERD. CXR revealed pleural effusions and head CT revealed an acute CVA with some notable mild midline shift without hemorrhage. She also received one dose of ASA 324 in ED. As her symptoms have resolved and the duration of her symptoms was > 3 days; she falls outside of the parameters for a stroke alert. MRI and head/neck CT ordered. Acute CVA without thrombolytics: mixed aphagia secondary to above Head CT: Hypodensity in the left posterior watershed is concerning for acute infarct. No definite hemorrhage is seen by CT. There is minimal mass effect or midline shift. Head/neck CTA ordered and pending Received loading dose of ASA in ED; takes baby ASA at home Stroke order set initiated; neuro checks Admit to M/S Telemetry COPD Pleural Effusions: Nocturnal Hypoxia secondary to above WBC 10.82 - monitor. Afebrile; no need to empirically treat at this time. Maintenance Inhaler: Anoro Ellipta Uses Albuterol for breakthrough ISB CBC in AM Sees [facility]; appt last week 03/05 CAD: s/p CABG x4 in 2019. ECHO ordered; last ECHO 08/2020: EF 50% HLD: Check Lipid panel in AM On Atorvastatin at home; 10 mg --> increased to 20 mg HTN: SBP increased in ED. SBP 150-160 Takes Metoprolol; continue PRN Hydralazine ordered Rheumatoid Arthritis: Takes Methotrexate PO Q Tuesday. Takes Plaquenil Takes PO prednisone Disposition: PCP: Dr. Lyon Code: Full VTE Prophylaxis: Heparin SQ Goal to return home post DC History of Present Illness Chief Complaint: Ms. Cm is a 76 year old female who presented to the [facility] with altered mental status and forgetfulness. She reports forgetting her cell phone # and what she did for her career. 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 She denied any slurred speech, she takes a baby asa at baseline. Patient has an extensive PMH that includes ILD, RA, COPD, HLD, CAD s/p CABG x4 in 2019, HLD, nocturnal hypoxia, and GERD. CXR revealed pleural effusions and head CT revealed an acute CVA with some notable mild midline shift without hemorrhage. She also received one dose of ASA 324 in ED. As her symptoms have resolved and the duration of her symptoms was > 3 days; she falls outside of the parameters for a stroke alert. MRI and head/neck CT ordered. ROS, patient currently denies KHOURY, dizziness, CP, palpitations, N/V/D, skin changes, appetite changes. Patient did take her AM medications. Patient will be admitted for further evaluation and management. Please see A/P for further details. Primary Care Provider: Jah Lyon MD Allergies Allergy/AdvReac Type Severity Reaction Status Date / Time codeine Allergy Unknown UNSURE, Verified 01/13/21 17:56 BUT HAD IT BEFORE Home Medications Medication Instructions Recorded Confirmed Type aspirin 81 mg tablet,delayed 81 mg PO QAM 09/22/19 03/15/22 History release (Jemma Low Dose Aspirin) atorvastatin 10 mg tablet 10 mg PO QAM 09/22/19 03/15/22 History folic acid 1 mg tablet 1 mg PO QAM 09/22/19 03/15/22 History metoprolol succinate 25 mg 25 mg PO QAM 09/22/19 03/15/22 History tablet,extended release 24 hr omeprazole 20 mg capsule,delayed 20 mg PO QAM 09/22/19 03/15/22 History release hydroxychloroquine 200 mg tablet 200 mg PO BID 01/13/21 03/15/22 History methotrexate sodium 2.5 mg tablet 20 mg PO WK 01/13/21 03/15/22 History prednisone 10 mg tablet 0 mg PO DIRECTED PRN ARTHRITIS 01/13/21 03/15/22 History [employer] Past Med/Surg History Medical History (Updated 03/15/22 @ 14:29 by Adonay Dsouza MD) Acute CVA (cerebrovascular accident) CAD (coronary artery disease) CAD (coronary artery disease) COPD (chronic obstructive pulmonary disease) HLD (hyperlipidemia) HTN (hypertension) Rheumatoid arthritis Rheumatoid lung disease Surgical History Hx of CABG Social History Smoking Status: Never smoker Hx Alcohol Use: No Hx Substance Use: No Preferred Language: Guyanese Communication Ability: Effective [employer] 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 Beliefs That Will Affect Care: None Current Living Situation: Spouse Current Living Situation Comment: pt takes care of her at home Feels Safe at Home: Yes Safety Concerns: Feels Safe At This Time Assistive Devices: Denture - Upper, Denture - Lower and Oxygen - at Night Review of Systems Review of Systems: Neuro: (-) Falls, trauma, slurred speech HEENT: (-) KHOURY, dizziness, dysphagia, visual or auditory changes, (-) gait changes (+) mixed aphagia CV: (-) CP, palpitations, swelling Resp: (-) SOB GI: (-) appetite changes, N/V/D, bowel changes : (-) urinary changes Skin: (-) rashes Psych: (-) anxiety, depression Physical Exam Physical Exam: Neuro: AAOx4, PERRLA, no aphagia, memory changes, CNII-XII grossly intact, some right sided facial droop HEENT: head normocephalic, moist mucus membranes CV: S1/S2, (-) M/G/R, (-) edema, cap refill < 3 seconds Resp: Lungs CTA in all sheehan. On 2LNC GI: Abdomen S/NT/ND, Ax4 bowel sounds, (-) CVA tenderness Musculoskeletal: 5/5 B/L UE strength, 5/5 B/L LE strength. No gait disturbance Skin: (-) rashes , (-) erythema. Psych: euthymic mood Results & Data Results & Data ([facility]) Vital Signs (Past 12 Hours) Vital Signs Temp Pulse Resp BP Pulse Ox O2 Del Method 03/15/22 11:30 86 19 120/62 94 Room Air 03/15/22 11:13 100 H 17 154/93 H 92 Room Air 03/15/22 11:00 82 27 H 127/71 92 Room Air 03/15/22 10:30 97 H 26 H 121/70 92 Room Air 03/15/22 10:12 146/78 H 95 Room Air 03/15/22 09:36 36.4 C L 100 H 22 160/80 H 94 Room Air Laboratory Results Short CBC 03/15/22 Range/Units 10:26 WBC 10.82 H (4.8-10.8) K/ul Hgb 12.4 (12.0-16.0) g/dl Hct 39.8 (34.1-44.9) % Plt Count 309 (130-400) K/uL BMP 03/15/22 10:26 Sodium 140 Potassium 4.5 Chloride 105 Carbon Dioxide 29 BUN 16 Creatinine 0.81 Glucose 122 H Calcium 9.7 Liver Function 03/15/22 Range/Units 10:26 Total Bilirubin 0.7 (0.2-1.0) mg/dl Direct Bilirubin 0.1 (0-0.2) mg/dl AST 17 (13-39) U/L ALT 18 (7-52) U/L Alkaline Phosphatase 50 (34-104) U/L Albumin 4.1 (3.4-5.0) gm/dl Urine 03/15/22 Range/Units 10:14 Urine Color Yellow Urine Appearance Clear (Clear) Urine pH 8.5 H (4.5-7.5) Ur Specific [place] 1.023 (1.000-1.030) Urine Protein Trace H (Negative) Urine Glucose (UA) Negative (Negative) Diagnostic Findings Chest X-Ray 03/15/22 10:09 XR chest 1V portable HISTORY: 76 years-old Female weakness, confusion acute weakness with confusion COMPARISON: Chest radiograph 10/04/2019 TECHNIQUE: Portable AP view the chest FINDINGS: Cardiac silhouette is enlarged. Prior median sternotomy. Pulmonary vascular congestion with reticular interstitial densities. No pneumothorax. Small pleural effusions with mild bibasilar opacities. Degenerative changes of the shoulders and spine. IMPRESSION: 1. Cardiomegaly with pulmonary edema. 2. Small pleural effusions with mild bibasilar opacities suggestive of atelectasis. Pneumonia could appear similarly. ACT 112: Negative or not required by law. The above report was generated using voice recognition software. It may contain grammatical, syntax or spelling errors. Electronically signed by: Juan C Phillip M.D. 03/15/2022 10:[address] 03/15/22 10:09 CT head/brain wo con CLINICAL HISTORY: worsening confusion, forgetfulness Technique: Contiguous axial CT images of the head were acquired from the base of the skull to the vertex without intravenous contrast administration. Images were viewed in brain, subdural and bone windows. Automated dose lowering techniques and/or adjustment according to patient size were utilized for this exam. Comparison: None available at the time of this dictation. Findings: Areas of decreased attenuation are present in the periventricular and subcortical white matter bilaterally consistent with small vessel ischemic disease. Generalized cerebral volume loss with commensurate enlargement of the ventricles, sulci, and cisterns is also present. There is hypodensity and loss of minor-white differentiation in the left posterior watershed concern for acute infarct. There is minimal mass effect and rightward midline shift of approximately 4 mm. Imaged portions of the paranasal sinuses and mastoid air cells are clear. The orbits appear normal. There are no acute fractures of the calvaria or scalp swelling. Impression: Hypodensity in the left posterior watershed is concerning for acute infarct. No definite hemorrhage is seen by CT. There is minimal mass effect or midline shift. ACT 112: Negative or not required by law. Electronically signed by: Leo Pozo M.D. 03/15/2022 11:31 AM Code Status & VTE Plan Code Status Ful code in the event of cardiac or respiratory illness VTE Prophylaxis Plan VTE Prophylaxis will be ordered: Yes Supervising Physician Co-Signing Physician Notes Patient was seen and examined independently at bedside. Chart reviewed. Case discussed with Carmen BARR and agree with the documentation above. In summary, this is a 76 year old female with h/o rheumatoid arthritis and lung disease who presented to the ED with memory issues for the past 3 days and was found to have acute left temporoparietal CVA with cytotoxic edema and slight midline shift to the right. CTA head and neck with no significant stenosis. EKG with NSR. Echo pending, no known h/o Afib. No h/o HTN or DM. She is on ASA and low dose lipitor as OP. She is afebrile, hemodynamically stable. Neurologically intact except for her memory issues AAOx1 during my encounter, follows commands, no pronator drift, no dipolopia, strength and sensation intact. Chest clear, heart sounds normal, abd benign, no edema. Deformity in her hand due to her RA noted. Discussed with neuro and recommendations noted as above. Continue ASA/plavix for 3 weeks followed by plavix. Increase lipitor to high intensity statin. No need for permissive HTN as symptoms >3 days.Echo pending. 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 Will likely need zio patch as OP if tele unremarkable. Needs OP follow up for her aneurysm detected in CTA head/neck. Formal neuro recommendations awaited. Of note D dimer elevated in labs but seems chronically elevated- higher even in 09/2019 but no evidence of PE during that time. Low concern for VTE but with complain of some SOB- check CTA chest to r/o PE. Rest as per the note above.
--- NOTE | 2022-03-15 13:36 | Electrocardiogram Report ---
Test Reason : Blood Pressure : / mmHG Vent. Rate : 097 BPM Atrial Rate : 097 BPM P-R Int : 134 ms QRS Dur : 090 ms QT Int : 364 ms P-R-T Axes : 072 010 247 degrees QTc Int : 462 ms Poor data quality, interpretation may be adversely affected Sinus rhythm with Premature supraventricular complexes Possible Anterior infarct , age undetermined Abnormal ECG When compared with ECG of 03-OCT-2019 20:34, Inverted T waves have replaced nonspecific T wave abnormality in Lateral leads Confirmed by Zacarias Montoya ([id number]) on 03/15/2022 1:35:53 PM Referred By: REFERRED SELF Confirmed By:Zacarias Montoya
[2022-03-15] MEDS ORDERED: OPTIRAY 300 500mL IV ONE ×2 (14:30→18:55)
--- NOTE | 2022-03-15 14:31 | Magnetic Resonance Report ---
MR brain wo con HISTORY: 76 years-old Female acute cva acutely altered mental status with strokelike symptoms COMPARISON: CT head, CTA head and neck studies of same day TECHNIQUE: Multiplanar multisequence MRI the brain was obtained without the use of IV contrast FINDINGS: Acute infarct of the left posterior cerebral hemisphere temporal parietal distribution measures appro ximately 5.0 x 2.5 x 4.5 cm. Mass effect from the moderate cytotoxic edema results in approximately 4 mm of rightward midline shift. Numerous chronic lacunar infarcts within the cerebellum. Midline stru ctures are unremarkable. Degenerative changes of the imaged cervical spine. The study is mildly motio n degraded. Mild involutional changes of the brain parenchyma. Moderate to extensive T2/FLAIR hyperin tense foci are noted throughout the white matter. There is no acute intracranial hemorrhage, hydrocephalus or intracranial mass identified. Cerebral ve nous sinuses and major arterial flow voids appear patent. The mastoid air cells and paranasal sinuses are generally clear. Skull and orbits are unremarkable. IMPRESSION: 1. No acute intracranial hemorrhage. 2. Acute infarct of the left temporal parietal distribution measures up to 5 cm. Moderate associated cytotoxic edema results in mass effect with 4 mm of rightward midline shift. 3. Involutional changes with moderate to extensive chronic microvascular ischemic disease. 4. Chronic lacunar infarcts of the cerebellum. ACT 112: Negative or not required by law. The above report was generated using voice recognition software. It may contain grammatical, syntax o r spelling errors. Electronically signed by: Juan C Phillip M.D. 03/15/2022 2:29 PM
[2022-03-15] MEDS ORDERED: PHARMACIST DISCHARGE MED REC CONSULT PRN (14:36)
[2022-03-15] MEDS ORDERED: POLYETHYLENE (MIRALAX) 17 GM PACK PO PRN (14:36)
[2022-03-15] MEDS ORDERED: ACETAMINOPHEN 325 MG TAB PO PRN (14:36)
[2022-03-15] MEDS ORDERED: ONDANSETRON INJ 2 MG/ML 2 ML VIAL IV PRN (14:36)
[2022-03-15] MEDS ORDERED: ALUMINUM/MAGNESIUM SUSP 30 ML UDC PO PRN (14:36)
[2022-03-15] MEDS ORDERED: MAGNESIUM HYDROXIDE SUSP 30 ML UDC PO PRN (14:36)
--- NOTE | 2022-03-15 14:41 | CT Scan Report ---
HEAD & NECK CTA HISTORY: Confusion. Follow-up left-sided cerebral infarct. TECHNIQUE: Multiaxial CT images of the head were performed following the intravenous administration o f contrast to evaluate the major cerebral vessels. Multiaxial CT images of the neck were also perform ed following the intravenous administration of contrast to evaluate the major cervical vessels. Maxim um intensity projection images were also obtained. A dose lowering technique was utilized adhering to the principles of ALARA. COMPARISON: Head CT 03/15/2022. FINDINGS: Redemonstration of the hypodense area within the left parietal lobe consistent with an acute infarct. Visualized intracranial internal carotid arteries, distal vertebral arteries, and basilar artery are widely patent. 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 There is a persistent right posterior circulation. There is a 3 mm saccular aneurysm wh ich appears to originate from the left carotid terminus on image 94. Mild calcified plaque within the bilateral carotid siphons. The major dural venous sinuses appear patent. The aortic arch and proximal great vessels are widely patent. There is no significant stenosis, occ lusion, or dissection identified within the bilateral common carotid, internal carotid, or vertebral arteries. Emphysema noted at the lung apices. There is also mild interlobular septal thickening. This may represent mild congestive change. There are poststernotomy changes noted. There are trace bilate ral pleural effusions. Mild right paratracheal lymphadenopathy is noted. Moderate calcified plaque wi thin the bilateral carotid bifurcations. Focal area of mild atherosclerotic plaque within the distal left internal carotid artery without significant stenosis. IMPRESSION: 1. Redemonstration of the hypodense area within left parietal lobe consistent with an acute infarct. This is located within the distal left MCA territory. 2. No significant stenosis or occlusion identified within the [place]. 3. A 3 mm saccular aneurysm which appears to originate from the left ICA terminus. 4. No significant stenosis, occlusion, or dissection within the cervical carotid or vertebral arterie s. 5. Mild pulmonary edema with trace bilateral pleural effusions. 6. Right paratracheal lymphadenopathy is nonspecific but could be due to chronic pulmonary edema. 2. No significant stenosis, occlusion, or dissection identified within the carotid or vertebral arter ies. ACT 112: Negative or not required by law. Electronically signed by: Jesse Murray M.D. 03/15/2022 2:39 PM
[2022-03-15] MEDS ORDERED: CLOPIDOGREL BISULFATE 75 MG TAB PO ONE (15:01)
[2022-03-15] MEDS: MAGNESIUM SULFATE / D5W 1 GM/100 ML BAG IV SCH ×2 (16:08→17:54)
[2022-03-15 16:47] LABS: INR 1.1 (0.9-1.1); Prothrombin Time 11.3 Seconds (9.0-12.0)
[2022-03-15 17:06] LABS: D Dimer 3350 ug/L FEU (0-500)
[2022-03-15] MEDS: SODIUM CHLORIDE 0.9% 1000ML 1,000 ML IV SCH (17:54)
--- NOTE | 2022-03-15 19:45 | CT Scan Report ---
CT ANGIOGRAM OF THE CHEST CLINICAL HISTORY: Elevated d-dimer. Dyspnea. COMPARISON STUDY: Chest x-ray dated 03/15/2022. Chest CT dated 10/03/2019. TECHNIQUE: Following the IV administration of 112 cc of Optiray 300, CT angiogram of the chest was pe rformed from the upper abdomen to the thoracic inlet utilizing the pulmonary embolus protocol. Images are reviewed in the axial, sagittal, and coronal planes. 3-D MIPS images are created and assessed. I V contrast was administered without complication. A dose lowering technique was utilized adhering to the principles of ALARA. CT DOSE: 586.94 mGy.cm FINDINGS: Thyroid: Imaged portions of the thyroid gland are normal in size and attenuation. Thoracic aorta: There is atherosclerotic calcification of the thoracic aorta, which is normal in yokasta saqib and demonstrates standard 3-vessel arch anatomy. No dissection is seen. Pulmonary vasculature: The pulmonary trunk is normal in caliber. There are no filling defects identif ied in main, lobar, or segmental pulmonary branches to suggest pulmonary embolus. Heart: The patient is status post midline sternotomy. The heart is enlarged and without pericardial e ffusion. The coronary arteries are densely calcified. Lungs and pleural spaces: Emphysema is noted. There are small pleural effusions with dependent consol idation. Intralobular septal thickening is noted at the lung bases. When correlated with today's ches t x-ray this indicates congestive failure. Mediastinum: There are numerous mildly enlarged mediastinal lymph nodes. These measure up to 11 mm in short axis. Christina: Mildly enlarged hilar nodes measure up to 14 mm in short axis. Axillae: There is no axillary lymphadenopathy. Upper abdomen: Reflux of contrast into the IVC and hepatic veins suggests cardiac dysfunction. Partia lly visualized upper abdominal viscera is otherwise normal as imaged. Skeletal structures: The skeletal structures are osteopenic. No lytic or blastic bony lesions are see n. Degenerative change is noted in the shoulders and thoracic spine. IMPRESSION: 1. There is no evidence of pulmonary embolus in the main, lobar, or segmental pulmonary arteries. 2. Cardiomegaly and emphysema with evidence of congestive failure. 3. Small pleural effusions with dependent consolidation. 4. Mildly enlarged mediastinal and hilar lymph nodes are nonspecific and likely reactive. 5. Additional findings as above. ACT 112: Negative or not required by law. Electronically signed by: Gabe Gasca M.D. 03/15/2022 7:43 PM
[2022-03-15] MEDS ORDERED: HEPARIN SOD 5,000 UNIT/0.5 ML VIAL SQ SCH (21:00)
[2022-03-16] MEDS: SODIUM CHLORIDE 0.9% 1000ML 1,000 ML IV SCH ×2 (02:28→11:57)
[2022-03-16 07:15] LABS: Basophils # (auto) 0.04 K/uL (0-0.2); Basophils % (auto) 0.4 %; Eosinophils # (auto) 0.18 K/uL (0-0.50); Eosinophils % (auto) 1.9 %; Hematocrit (blood only) 35.1 % (34.1-44.9); Hemoglobin 11.3 g/dl (12.0-16.0); Immature Granulocytes # (auto) 0.03 K/uL (0.00-0.02); Immature Granulocytes % (auto) 0.3 %; Lymphocytes # (auto) 1.42 K/uL (1.2-3.4); Lymphocytes % (auto) 15.2 %; Mean Corpuscular Hemoglobin 28.7 pg (25.0-34.0); Mean Corpuscular Hgb Conc 32.2 g/dL (32.0-36.0); Mean Corpuscular Volume 89.1 fL (80.0-100.0); Mean Platelet Volume 10.5 fL (9.4-12.3); Monocytes # (auto) 0.91 K/uL (0.24-0.82); Monocytes % (auto) 9.7 %; Neutrophils # (auto) 6.78 K/uL (1.4-6.5); Neutrophils % (auto) 72.5 %; Platelet Count 280 K/uL (130-400); RDW Coefficient of Variation 14.6 % (11.5-14.5); RDW Standard Deviation 46.5 fL (36.4-46.3); Red Blood Count 3.94 M/uL (3.93-5.22); White Blood Count 9.36 K/ul (4.8-10.8)
[2022-03-16 07:42] LABS: BUN Creatinine Ratio 20.5 (10-20); Calcium 8.6 mg/dl (8.5-10.1); Chol HDL Ratio 3.1 (0-5); Creatinine Clr Calc Pharmacy 69.4 ml/min; Est GFR (Non-African American) 81.1 ml/min; Potassium 4.3 mmol/L (3.5-5.1)
[2022-03-16 07:44] LABS: Estimated Average Glucose 128 mg/dl; Hemoglobin A1C 6.1 % (4.5-5.6)
[2022-03-16 07:45] LABS: Troponin I High Sensitivity 35.7 pg/ml (0-14)
[2022-03-16] MEDS: ATORVASTATIN 40 MG TAB PO SCH (08:24)
[2022-03-16] MEDS: CLOPIDOGREL BISULFATE 75 MG TAB PO SCH (08:25)
[2022-03-16] MEDS ORDERED: ATORVASTATIN 20 MG TAB PO SCH (09:00)
--- NOTE | 2022-03-16 09:51 | CT Scan Report ---
CT head/brain wo con CLINICAL HISTORY: follow -up Technique: Contiguous axial CT images of the head were acquired from the base of the skull to the sadie gerardo without intravenous contrast administration. Images were viewed in brain, subdural and [facility]. Automated dose lowering techniques and/or adjustment according to patient size were utilized for this exam. Comparison: Comparison is made to CTA head and neck 03/14/2022 Findings: There is edema and obscuration of the minor-white differentiation in the left posterior MCA territory. Compared to last exam, the edema is somewhat less pronounced. There is no hemorrhagic transformation . There is approximately 4 mm rightward midline shift. Imaged portions of the paranasal sinuses and mastoid air cells are clear. The orbits appear normal. There are no acute fractures of the calvaria or scalp swelling. Impression: Redemonstration of left posterior MCA infarct with mass effect and midline shift but without evidence of hemorrhagic transformation. ACT 112: Negative or not required by law. Electronically signed by: Leo Pozo M.D. 03/16/2022 9:49 AM
--- NOTE | 2022-03-16 10:07 | Hospitalist Progress Note ---
Date of Service March 16, 2022 Assessment & Plan (1) Acute CVA (cerebrovascular accident): (2) Pleural effusion: (3) COPD (chronic obstructive pulmonary disease): (4) CAD (coronary artery disease): (5) HLD (hyperlipidemia): (6) HTN (hypertension): (7) Rheumatoid arthritis: Plan Ms. Cm is a 76 year old female who presented to the [facility] with altered mental status and forgetfulness. She reports forgetting her cell phone # and what she did for her career. 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 She denied any slurred speech, she takes a baby asa at baseline. Patient has an extensive PMH that includes ILD, RA, COPD, HLD, CAD s/p CABG x4 in 2019, HLD, nocturnal hypoxia, and GERD. CXR revealed pleural effusions and head CT revealed an acute CVA with some notable mild midline shift without hemorrhage. She also received one dose of ASA 324 in ED. As her symptoms have resolved and the duration of her symptoms was > 3 days; she falls outside of the parameters for a stroke alert. MRI and head/neck CT ordered. Acute CVA without thrombolytics: mixed aphagia secondary to above Head CT: Hypodensity in the left posterior watershed is concerning for acute infarct. No definite hemorrhage is seen by CT. There is minimal mass effect or midline shift. Head/neck CTA 1. Redemonstration of the hypodense area within left parietal lobe consistent with an acute infarct. This is located within the distal left MCA territory. 2. No significant stenosis or occlusion identified within the [place] of [place]. 3. A 3 mm saccular aneurysm which appears to originate from the left ICA terminus. 4. No significant stenosis, occlusion, or dissection within the cervical carotid or vertebral arteries. 5. Mild pulmonary edema with trace bilateral pleural effusions. 6. Right paratracheal lymphadenopathy is nonspecific but could be due to chronic pulmonary edema. 2. No significant stenosis, occlusion, or dissection identified within the carotid or vertebral arteries. Brain MRI IMPRESSION: 1. No acute intracranial hemorrhage. 2. Acute infarct of the left temporal parietal distribution measures up to 5 cm. Moderate associated cytotoxic edema results in mass effect with 4 mm of rightward midline shift. 3. Involutional changes with moderate to extensive chronic microvascular ischemic disease. 4. Chronic lacunar infarcts of the cerebellum. Received loading dose of ASA in ED; takes baby ASA at home Stroke order set initiated; neuro checks Admitted to M/S Telemetry Admitting team discussed with neurology. Repeat head CT this morning obtained. Head CT (repeat) Redemonstration of left posterior MCA infarct with mass effect and midline shift but without evidence of hemorrhagic transformation. Aspirin was switched to Plavix. Patient started on statin. Outpatient telemetry monitoring recommended. Echo obtained, and shows decreased function. Pleural effusion on admission. Cardiology consultation recommended and obtained. Acute CHF exacerbation (mild) Echo EF 30 to 35%. There is moderate to severe global hypokinesis of the left ventricle. RV is normal size. RV systolic function is reduced as assessed by tricuspid annular plane systolic excursion TAPSE. There is moderate mitral regurg. There is mild tricuspid regurg. Estimated systolic pulmonary pressure is 50 mmHg. LA is moderately dilated. Injection of contrast documented no interatrial shunt. Cardiology consulted, started IV Lasix, recommend to resume metoprolol. COPD Nocturnal Hypoxia secondary to above WBC 10.82 - monitor. Afebrile; no need to empirically treat at this time. Maintenance Inhaler: Anoro Ellipta Uses Albuterol for breakthrough ISB CBC in AM Sees [facility]; appt last week 03/05 CAD: s/p CABG x4 in 2019. ECHO ordered; last ECHO 08/2020: EF 50% HLD: Check Lipid panel On Atorvastatin at home; 10 mg --> increased to 20 mg HTN: SBP increased in ED. SBP 150-160 Takes Metoprolol; continue PRN Hydralazine ordered Rheumatoid Arthritis: Takes Methotrexate PO Q Tuesday. Takes Plaquenil Takes PO prednisone Disposition: PCP: Dr. Lyon Code: Full VTE Prophylaxis: Heparin SQ Goal to return home post DC Admission and Anticipated Discharge Date Admission Date: March 15, 2022 Subjective Patient seen in follow-up of acute CVA, mild CHF exacerbation Currently laying in bed, in no acute distress She is alert oriented answering questions appropriately. Denies fevers chills chest pain shortness of breath palpitations, abdominal pain, nausea vomiting She is breathing comfortably on room air Tells me that she feels confused, however she is able to tell me her name, where she is, and able to provide meaningful history She is moving extremities without much difficulty Review of Systems Review of Systems: All systems reviewed & are unremarkable except as noted in Subjective Physical Exam Physical Exam: GENERAL: Elderly female, laying in bed, in no acute distress HEENT: head normocephalic, moist mucus membranes CV: S1/S2, (-) M/G/R, (-) edema Resp: Lungs CTA, + bibasilar crackles, On RA GI: Abdomen S/NT/ND, Ax4 bowel sounds, (-) CVA tenderness Musculoskeletal: Moves upper and lower extremities without difficulty Neuro: Alert oriented, answering questions appropriately, EOMI, PERRL, speech fluent,moves extremities Skin: (-) rashes , (-) erythema. Psych: euthymic mood Results & Data Results & Data ([facility]) Vital Signs (Past 12 Hours) Vital Signs Temp Pulse Pulse Pulse Resp BP Pulse Ox 03/16/22 07:49 82 03/16/22 07:38 37.1 C 83 16 131/82 94 03/16/22 04:04 37 C 103 H 104 H 24 143/84 H 92 03/15/22 23:50 87 03/15/22 22:44 37.1 C 84 20 143/78 H 96 O2 Del Method 03/16/22 07:49 03/16/22 07:38 Room Air 03/16/22 04:04 Room Air 03/15/22 23:50 03/15/22 22:44 Room Air Laboratory Results 03/16/22 03/16/22 03/16/22 Range/Units 06:36 06:36 06:36 WBC (4.8-10.8) K/ul RBC (3.93-5.22) M/uL Hgb (12.0-16.0) g/dl Hct (34.1-44.9) % MCV (80.0-100.0) fL MCH (25.0-34.0) pg MCHC (32.0-36.0) g/dL RDW Std Deviation (36.4-46.3) fL RDW Coeff of Jacquelyn (11.5-14.5) % Plt Count (130-400) K/uL MPV (9.4-12.3) fL Immature Gran % (Auto) % Neut % (Auto) % Lymph % (Auto) % Christian % (Auto) % Eos % (Auto) % Baso % (Auto) % Neut # (Auto) (1.4-6.5) K/uL Lymph # (Auto) (1.2-3.4) K/uL Christian # (Auto) (0.24-0.82) K/uL Eos # (Auto) (0-0.50) K/uL Baso # (Auto) (0-0.2) K/uL Immature Gran # (Auto) (0.00-0.02) K/uL ESR (0-30) mm/hr PT (9.0-12.0) Seconds INR (0.9-1.1) D-Dimer (0-500) ug/L FEU Sodium 136 (136-145) mmol/L Potassium 4.3 (3.5-5.1) mmol/L Chloride 105 (98-107) mmol/L Carbon Dioxide 25 (21-32) mmol/L Anion Gap 6 (3-11) BUN 15 (6-23) mg/dl Creatinine 0.73 (0.6-1.2) mg/dl Est Cr Clr Drug Dosing 69.4 ml/min Est GFR ( Amer) 94.0 ml/min Est GFR (Non-Af Amer) 81.1 ml/min BUN/Creatinine Ratio 20.5 H (10-20) Glucose 95 (70-99(Fasting)) mg/dl Estimat Average Glucose 128 mg/dl Hemoglobin A1c 6.1 H (4.5-5.6) % Calcium 8.6 (8.5-10.1) mg/dl Magnesium (1.7-2.4) mg/dl Total Bilirubin (0.2-1.0) mg/dl Direct Bilirubin (0-0.2) mg/dl AST (13-39) U/L ALT (7-52) U/L Alkaline Phosphatase (34-104) U/L Troponin I High Sens Cancelled 35.7 H (0-14) pg/ml Total Protein (6.0-8.3) gm/dl Albumin (3.4-5.0) gm/dl Triglycerides 66 (0-150) mg/dl Cholesterol 99 (0-200) mg/dl LDL Cholesterol, Calc 54 mg/dl VLDL Cholesterol, Calc 13 (0-30) mg/dl HDL Cholesterol 32 mg/dl Cholesterol/HDL Ratio 3.1 (0-5) Urine Color Urine Appearance (Clear) Urine pH (4.5-7.5) Ur Specific [place] (1.000-1.030) Urine Protein (Negative) Urine Glucose (UA) (Negative) Urine Ketones (Negative) Urine Blood (Negative) Urine Nitrite (Negative) Urine Bilirubin (Negative) Urine Urobilinogen (Negative) Ur Leukocyte Esterase (Negative) Urine WBC (Auto) (0-5) /hpf Urine RBC (Auto) (0-4) /hpf U Hyaline Cast (Auto) (0-5) /lpf U Epithel Cells (Auto) (0-5) /lpf Urine Bacteria (Auto) (Negative) SARS-CoV-2, RNA, NAAT (NEGATIVE) 03/16/22 03/16/22 03/15/22 Range/Units 06:36 01:04 19:44 WBC 9.36 (4.8-10.8) K/ul RBC 3.94 (3.93-5.22) M/uL Hgb 11.3 L (12.0-16.0) g/dl Hct 35.1 (34.1-44.9) % MCV 89.1 (80.0-100.0) fL MCH 28.7 (25.0-34.0) pg MCHC 32.2 (32.0-36.0) g/dL RDW Std Deviation 46.5 H (36.4-46.3) fL RDW Coeff of Jacquelyn 14.6 H (11.5-14.5) % Plt Count 280 (130-400) K/uL MPV 10.5 (9.4-12.3) fL Immature Gran % (Auto) 0.3 % Neut % (Auto) 72.5 % Lymph % (Auto) 15.2 % Christian % (Auto) 9.7 % Eos % (Auto) 1.9 % Baso % (Auto) 0.4 % Neut # (Auto) 6.78 H (1.4-6.5) K/uL Lymph # (Auto) 1.42 (1.2-3.4) K/uL Christian # (Auto) 0.91 H (0.24-0.82) K/uL Eos # (Auto) 0.18 (0-0.50) K/uL Baso # (Auto) 0.04 (0-0.2) K/uL Immature Gran # (Auto) 0.03 H (0.00-0.02) K/uL ESR (0-30) mm/hr PT (9.0-12.0) Seconds INR (0.9-1.1) D-Dimer (0-500) ug/L FEU Sodium (136-145) mmol/L Potassium (3.5-5.1) mmol/L Chloride (98-107) mmol/L Carbon Dioxide (21-32) mmol/L Anion Gap (3-11) BUN (6-23) mg/dl Creatinine (0.6-1.2) mg/dl Est Cr Clr Drug Dosing ml/min Est GFR ( Amer) ml/min Est GFR (Non-Af Amer) ml/min BUN/Creatinine Ratio (10-20) Glucose (70-99(Fasting)) mg/dl Estimat Average Glucose mg/dl Hemoglobin A1c (4.5-5.6) % Calcium (8.5-10.1) mg/dl Magnesium (1.7-2.4) mg/dl Total Bilirubin (0.2-1.0) mg/dl Direct Bilirubin (0-0.2) mg/dl AST (13-39) U/L ALT (7-52) U/L Alkaline Phosphatase (34-104) U/L Troponin I High Sens 36.9 H 43.9 H D (0-14) pg/ml Total Protein (6.0-8.3) gm/dl Albumin (3.4-5.0) gm/dl Triglycerides (0-150) mg/dl Cholesterol (0-200) mg/dl LDL Cholesterol, Calc mg/dl VLDL Cholesterol, Calc (0-30) mg/dl HDL Cholesterol mg/dl Cholesterol/HDL Ratio (0-5) Urine Color Urine Appearance (Clear) Urine pH (4.5-7.5) Ur Specific [place] (1.000-1.030) Urine Protein (Negative) Urine Glucose (UA) (Negative) Urine Ketones (Negative) Urine Blood (Negative) Urine Nitrite (Negative) Urine Bilirubin (Negative) Urine Urobilinogen (Negative) Ur Leukocyte Esterase (Negative) Urine WBC (Auto) (0-5) /hpf Urine RBC (Auto) (0-4) /hpf U Hyaline Cast (Auto) (0-5) /lpf U Epithel Cells (Auto) (0-5) /lpf Urine Bacteria (Auto) (Negative) SARS-CoV-2, RNA, NAAT (NEGATIVE) 03/15/22 03/15/22 03/15/22 Range/Units 15:04 15:04 15:04 WBC (4.8-10.8) K/ul RBC (3.93-5.22) M/uL Hgb (12.0-16.0) g/dl Hct (34.1-44.9) % MCV (80.0-100.0) fL MCH (25.0-34.0) pg MCHC (32.0-36.0) g/dL RDW Std Deviation (36.4-46.3) fL RDW Coeff of Jacquelyn (11.5-14.5) % Plt Count (130-400) K/uL MPV (9.4-12.3) fL Immature Gran % (Auto) % Neut % (Auto) % Lymph % (Auto) % Christian % (Auto) % Eos % (Auto) % Baso % (Auto) % Neut # (Auto) (1.4-6.5) K/uL Lymph # (Auto) (1.2-3.4) K/uL Christian # (Auto) (0.24-0.82) K/uL Eos # (Auto) (0-0.50) K/uL Baso # (Auto) (0-0.2) K/uL Immature Gran # (Auto) (0.00-0.02) K/uL ESR 19 (0-30) mm/hr PT 11.3 (9.0-12.0) Seconds INR 1.1 (0.9-1.1) D-Dimer 3350 H* (0-500) ug/L FEU Sodium (136-145) mmol/L Potassium (3.5-5.1) mmol/L Chloride (98-107) mmol/L Carbon Dioxide (21-32) mmol/L Anion Gap (3-11) BUN (6-23) mg/dl Creatinine (0.6-1.2) mg/dl Est Cr Clr Drug Dosing ml/min Est GFR ( Amer) ml/min Est GFR (Non-Af Amer) ml/min BUN/Creatinine Ratio (10-20) Glucose (70-99(Fasting)) mg/dl Estimat Average Glucose mg/dl Hemoglobin A1c (4.5-5.6) % Calcium (8.5-10.1) mg/dl Magnesium (1.7-2.4) mg/dl Total Bilirubin (0.2-1.0) mg/dl Direct Bilirubin (0-0.2) mg/dl AST (13-39) U/L ALT (7-52) U/L Alkaline Phosphatase (34-104) U/L Troponin I High Sens 31.5 H (0-14) pg/ml Total Protein (6.0-8.3) gm/dl Albumin (3.4-5.0) gm/dl Triglycerides (0-150) mg/dl Cholesterol (0-200) mg/dl LDL Cholesterol, Calc mg/dl VLDL Cholesterol, Calc (0-30) mg/dl HDL Cholesterol mg/dl Cholesterol/HDL Ratio (0-5) Urine Color Urine Appearance (Clear) Urine pH (4.5-7.5) Ur Specific [place] (1.000-1.030) Urine Protein (Negative) Urine Glucose (UA) (Negative) Urine Ketones (Negative) Urine Blood (Negative) Urine Nitrite (Negative) Urine Bilirubin (Negative) Urine Urobilinogen (Negative) Ur Leukocyte Esterase (Negative) Urine WBC (Auto) (0-5) /hpf Urine RBC (Auto) (0-4) /hpf U Hyaline Cast (Auto) (0-5) /lpf U Epithel Cells (Auto) (0-5) /lpf Urine Bacteria (Auto) (Negative) SARS-CoV-2, RNA, NAAT (NEGATIVE) 03/15/22 03/15/22 03/15/22 Range/Units 10:26 10:26 10:23 WBC 10.82 H (4.8-10.8) K/ul RBC 4.31 (3.93-5.22) M/uL Hgb 12.4 (12.0-16.0) g/dl Hct 39.8 (34.1-44.9) % MCV 92.3 (80.0-100.0) fL MCH 28.8 (25.0-34.0) pg MCHC 31.2 L (32.0-36.0) g/dL RDW Std Deviation 48.2 H (36.4-46.3) fL RDW Coeff of Jacquelyn 14.2 (11.5-14.5) % Plt Count 309 (130-400) K/uL MPV 10.2 (9.4-12.3) fL Immature Gran % (Auto) 0.5 % Neut % (Auto) 81.6 % Lymph % (Auto) 9.9 % Christian % (Auto) 6.4 % Eos % (Auto) 1.3 % Baso % (Auto) 0.3 % Neut # (Auto) 8.84 H (1.4-6.5) K/uL Lymph # (Auto) 1.07 L (1.2-3.4) K/uL Christian # (Auto) 0.69 (0.24-0.82) K/uL Eos # (Auto) 0.14 (0-0.50) K/uL Baso # (Auto) 0.03 (0-0.2) K/uL Immature Gran # (Auto) 0.05 H (0.00-0.02) K/uL ESR (0-30) mm/hr PT (9.0-12.0) Seconds INR (0.9-1.1) D-Dimer (0-500) ug/L FEU Sodium 140 (136-145) mmol/L Potassium 4.5 (3.5-5.1) mmol/L Chloride 105 (98-107) mmol/L Carbon Dioxide 29 (21-32) mmol/L Anion Gap 6 (3-11) BUN 16 (6-23) mg/dl Creatinine 0.81 (0.6-1.2) mg/dl Est Cr Clr Drug Dosing 62.7 ml/min Est GFR ( Amer) 82.9 ml/min Est GFR (Non-Af Amer) 71.5 ml/min BUN/Creatinine Ratio 19.8 (10-20) Glucose 122 H (70-99(Fasting)) mg/dl Estimat Average Glucose mg/dl Hemoglobin A1c (4.5-5.6) % Calcium 9.7 (8.5-10.1) mg/dl Magnesium 1.8 (1.7-2.4) mg/dl Total Bilirubin 0.7 (0.2-1.0) mg/dl Direct Bilirubin 0.1 (0-0.2) mg/dl AST 17 (13-39) U/L ALT 18 (7-52) U/L Alkaline Phosphatase 50 (34-104) U/L Troponin I High Sens 22.1 H (0-14) pg/ml Total Protein 6.8 (6.0-8.3) gm/dl Albumin 4.1 (3.4-5.0) gm/dl Triglycerides (0-150) mg/dl Cholesterol (0-200) mg/dl LDL Cholesterol, Calc mg/dl VLDL Cholesterol, Calc (0-30) mg/dl HDL Cholesterol mg/dl Cholesterol/HDL Ratio (0-5) Urine Color Urine Appearance (Clear) Urine pH (4.5-7.5) Ur Specific [place] (1.000-1.030) Urine Protein (Negative) Urine Glucose (UA) (Negative) Urine Ketones (Negative) Urine Blood (Negative) Urine Nitrite (Negative) Urine Bilirubin (Negative) Urine Urobilinogen (Negative) Ur Leukocyte Esterase (Negative) Urine WBC (Auto) (0-5) /hpf Urine RBC (Auto) (0-4) /hpf U Hyaline Cast (Auto) (0-5) /lpf U Epithel Cells (Auto) (0-5) /lpf Urine Bacteria (Auto) (Negative) SARS-CoV-2, RNA, NAAT NEGATIVE (NEGATIVE) 03/15/22 Range/Units 10:14 WBC (4.8-10.8) K/ul RBC (3.93-5.22) M/uL Hgb (12.0-16.0) g/dl Hct (34.1-44.9) % MCV (80.0-100.0) fL MCH (25.0-34.0) pg MCHC (32.0-36.0) g/dL RDW Std Deviation (36.4-46.3) fL RDW Coeff of Jacquelyn (11.5-14.5) % Plt Count (130-400) K/uL MPV (9.4-12.3) fL Immature Gran % (Auto) % Neut % (Auto) % Lymph % (Auto) % Christian % (Auto) % Eos % (Auto) % Baso % (Auto) % Neut # (Auto) (1.4-6.5) K/uL Lymph # (Auto) (1.2-3.4) K/uL Christian # (Auto) (0.24-0.82) K/uL Eos # (Auto) (0-0.50) K/uL Baso # (Auto) (0-0.2) K/uL Immature Gran # (Auto) (0.00-0.02) K/uL ESR (0-30) mm/hr PT (9.0-12.0) Seconds INR (0.9-1.1) D-Dimer (0-500) ug/L FEU Sodium (136-145) mmol/L Potassium (3.5-5.1) mmol/L Chloride (98-107) mmol/L Carbon Dioxide (21-32) mmol/L Anion Gap (3-11) BUN (6-23) mg/dl Creatinine (0.6-1.2) mg/dl Est Cr Clr Drug Dosing ml/min Est GFR ( Amer) ml/min Est GFR (Non-Af Amer) ml/min BUN/Creatinine Ratio (10-20) Glucose (70-99(Fasting)) mg/dl Estimat Average Glucose mg/dl Hemoglobin A1c (4.5-5.6) % Calcium (8.5-10.1) mg/dl Magnesium (1.7-2.4) mg/dl Total Bilirubin (0.2-1.0) mg/dl Direct Bilirubin (0-0.2) mg/dl AST (13-39) U/L ALT (7-52) U/L Alkaline Phosphatase (34-104) U/L Troponin I High Sens (0-14) pg/ml Total Protein (6.0-8.3) gm/dl Albumin (3.4-5.0) gm/dl Triglycerides (0-150) mg/dl Cholesterol (0-200) mg/dl LDL Cholesterol, Calc mg/dl VLDL Cholesterol, Calc (0-30) mg/dl HDL Cholesterol mg/dl Cholesterol/HDL Ratio (0-5) Urine Color Yellow Urine Appearance Clear (Clear) Urine pH 8.5 H (4.5-7.5) Ur Specific [place] 1.023 (1.000-1.030) Urine Protein Trace H (Negative) Urine Glucose (UA) Negative (Negative) Urine Ketones Negative (Negative) Urine Blood Negative (Negative) Urine Nitrite Negative (Negative) Urine Bilirubin Negative (Negative) Urine Urobilinogen Negative (Negative) Ur Leukocyte Esterase Trace H (Negative) Urine WBC (Auto) 1-5 (0-5) /hpf Urine RBC (Auto) 0-4 (0-4) /hpf U Hyaline Cast (Auto) 1-5 (0-5) /lpf U Epithel Cells (Auto) 20-30 H (0-5) /lpf Urine Bacteria (Auto) Negative (Negative) SARS-CoV-2, RNA, NAAT (NEGATIVE) Medications Administered Current Inpatient Medications Acetaminophen (Acetaminophen 325 Mg Tab) 650 mg PO Q4H PRN PRN Reason: Pain or Fever Stop: 04/14/22 14:35 Al Hydrox/Mg Hydrox/Simethicone (Aluminum/Magnesium Susp 30 Ml Udc) 15 ml PO Q4H PRN PRN Reason: Dyspepsia Stop: 04/14/22 14:35 Atorvastatin Calcium (Atorvastatin 40 Mg Tab) 40 mg PO QAM [facility] Stop: 04/15/22 08:59 Last Admin: 03/16/22 08:24 Dose: 40 mg Clopidogrel Bisulfate (Clopidog[place] Bisulf[place] 75 Mg Tab) [facility] [place] [facility] [place]: 04/15/22 08:59 Last Admin: 03/16/22 08:25 Dose: 75 mg Furosemide (Furosemide 40 Mg/4 Ml Vial) 40 mg IV DAILY [facility] Stop: 04/15/22 13:44 Last Admin: 03/16/22 13:50 Dose: 40 mg Magnesium Hydroxide (Magnesium Hydroxide Susp 30 Ml Udc) 30 ml PO Q12H PRN PRN Reason: Constipation Stop: 04/14/22 14:35 Metoprolol Succinate (Metoprolol Succ 25mg Ext Rel Tab) [facility] [place]: 04/15/22 13:44 Last Admin: 03/16/22 14:33 Dose: 25 mg Miscellaneous Information (Pharmacist Discharge Med Rec Consult) 1 each N/A UD PRN PRN Reason: Consult Stop: 04/14/22 14:35 Ondansetron HCl (Ondansetron Inj 2 Mg/Ml 2 Ml Vial) 4 mg IV Q6H PRN PRN Reason: Nausea Stop: 04/14/22 14:35 Polyethylene Glycol (Polyethylene (Miralax) 17 Gm Pack) 17 gm PO DAILY PRN PRN Reason: Constipation Stop: 04/14/22 14:35
--- NOTE | 2022-03-16 10:50 | Neurology Consultation ---
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 No agraphia, however. She also has a right visual field deficit with confrontation testing. Her brain MRI does reveal an acute to subacute infarct within the posterior left MCA territory. 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 Follow-up CT of the head completed this morning suggestibility of her infarct without associated hemorrhagic transformation, stable cytotoxic edema. This patient does have several stroke risk factors including hypertension and hyperlipidemia. However, I do have some concern for cardioembolism in her case as she does have severe global hypokinesis of the left ventricle and a moderately dilated left atrium. Occult paroxysmal atrial fibrillation not excluded. I agree with switching from daily low-dose aspirin to clopidogrel. Would advise avoiding interval or short-term dual antiplatelet therapy in this patient given presence of cytotoxic edema although I think risk of hemorrhagic transformation at this point is probably low. Continue with atorvastatin as ordered. Systolic blood pressure goal acutely 140 to 160 mmHg. Consider restarting metoprolol prior to discharge. Would recommend 30-day mobile cardiac outpatient telemetry given concern for cardioembolic stroke in this patient. If she does have evidence of paroxysmal atrial fibrillation would recommend treatment with a direct oral anticoagulant and additional follow-up with cardiology. I do note that her recent echocardiogram revealed some changes compared with the previous study done in September 2019 including a reduced ejection fraction and moderate to severe global hypokinesis of the left ventricle. She does have an elevation in high-sensitivity troponins as well. There appears to be an element of congestive heart failure on her recent CT of the chest. May need additional cardiac evaluation. Patient will need consultations with PT/OT/speech therapy. She will also need an outpatient ophthalmology assessment to include visual field testing as she does have a right visual field deficit that may preclude her from operating a motor vehicle, at least temporarily. I do note that her stroke does not involve the medial aspect of the left occipital lobe and her visual difficulty may be related to an element of neglect or visual processing rather than a true field cut. No further immediate recommendations. History of Present Illness Reason for Consultation: stroke Requesting Physician: Carmen BARR Attending Physician: David Coats MD History of Present Illness The patient is a 76-year-old female who presented to the emergency department yesterday with a chief complaint of confusion, stumbling with words, beginning 3 days prior. Although there was some initial concern for stroke, given timing of symptom onset, she was not considered an appropriate candidate for thrombolytic treatment. She apparently had an NIH stroke scale of 0 during her initial assessment. She was noted to have some intermittent difficulty with word finding at that time. A CT of the head did reveal a hypodensity in the left posterior MCA/CLINICAL TECH watershed area concerning for acute infarct, no hemorrhage. CT angiography of the head and neck revealed no significant stenosis, occlusion, or vascular lesion within the intracranial or cervical arteries. 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 A follow-up brain MRI did reveal an acute infarct within the left temporoparietal area measuring up to 5 cm with moderate associated cytotoxic edema resulting in 4 mm of left to right midline shift. No hemorrhage. Chronic cerebellar lacunar infarct seen. Chronic microvascular ischemic disease appreciated as well. I did review the images as well as the radiologist's interpretation of these tests and agree with these findings. This morning, the patient was resting comfortably in bed, she denied headache or focal weakness but did continue to report some difficulty with confusion, see examination below for further details. Past medical history notable for hypertension, hyperlipidemia, CAD, on daily low-dose aspirin, atorvastatin. History also notable for rheumatoid arthritis, on hydroxychloroquine and methotrexate. Allergies Allergy/AdvReac Type Severity Reaction Status Date / Time codeine Allergy Unknown UNSURE, Verified 01/13/21 17:56 BUT HAD IT BEFORE Home Medications Medication Instructions Recorded Confirmed Type aspirin 81 mg tablet,delayed 81 mg PO QAM 09/22/19 03/15/22 History release (Jemma Low Dose Aspirin) atorvastatin 10 mg tablet 10 mg PO QAM 09/22/19 03/15/22 History folic acid 1 mg tablet 1 mg PO QAM 09/22/19 03/15/22 History metoprolol succinate 25 mg 25 mg PO QAM 09/22/19 03/15/22 History tablet,extended release 24 hr omeprazole 20 mg capsule,delayed 20 mg PO QAM 09/22/19 03/15/22 History release hydroxychloroquine 200 mg tablet 200 mg PO BID 01/13/21 03/15/22 History methotrexate sodium 2.5 mg tablet 20 mg PO WK 01/13/21 03/15/22 History prednisone 10 mg tablet 0 mg PO DIRECTED PRN ARTHRITIS 01/13/21 03/15/22 History FLARE UPS Patient History Medical History Acute CVA (cerebrovascular accident) CAD (coronary artery disease) CAD (coronary artery disease) COPD (chronic obstructive pulmonary disease) HLD (hyperlipidemia) HTN (hypertension) Rheumatoid arthritis Rheumatoid lung disease Surgical History Hx of CABG Social History Smoking Status: Never smoker Hx Alcohol Use: No Hx Substance Use: No Preferred Language: Nigerien Communication Ability: Effective 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 Beliefs That Will Affect Care: None Current Living Situation: Spouse Current Living Situation Comment: pt takes care of her at home Feels Safe at Home: Yes Safety Concerns: Feels Safe At This Time Assistive Devices: Denture - Upper, Denture - Lower and Oxygen - at Night Review of Systems Constitutional: no fever and no chills Eyes: no blind spots and no diplopia Ear, Nose, Mouth, Throat: no hearing loss Respiratory: no cough and no dyspnea Cardiovascular: no chest pain and no palpitations Gastrointestinal: no nausea and no vomiting Genitourinary: no dysuria Musculoskeletal: + joint pain and + stiffness; no neck pain Integumentary: no rash and no lesions Neurologic: as per Subjective / HPI; no gait abnormality and no localized weakness Psychiatric: no depression and no anxiety Hematologic / Lymphatic: no easy bleeding and no easy bruising Exam (Neuro) Constitutional: well developed and well nourished; no acute distress Eyes: PERRL, normal accommodation and EOM intact bilaterally; + abnormal visua l field confrontation (Right visual field deficit with confrontation testing.), no fundoscopic abnormality, no nystagmus and no papilledema Cardiovascular: Vessels: normal carotid upstroke; no carotid bruit Neurologic: Oriented to:: Person, Place and Time Memory: Short Term Intact and Remote Intact Attention: Span Intact and Concentration Intact Language: Naming Objects and Repeating Phrases Speech Fluency: Dysfluency; negative Dysarthria Speech Aphasia: Aphasia (mild) Fund of Knowledge: Current Events, Past History and Vocabulary Cranial Nerves: Normal III, IV, (Pupils equal round reactive to light and accommodation, eye movements normal), V (Facial sensation intact), VII (There is no facial droop or weakness), VIII (Hearing intact), IX, X (Palate elevates to midline), XI (Shoulder shrug intact) and XII (Tongue protrudes to midline); Abnorm II (Patient exhibits a right visual field cut with confrontation testing.) Motor Strength: Normal Lower Extremities and Normal Upper Extremities; negative Pronator Drift Motor Tone: Normal Lower Extremities and Normal Upper Extremities Muscle Bulk/Involuntary Movements: No Involuntary Movements; negative Muscle Atrophy Sensation: Light Touch Intact, Pain/Temperature Intact, Vibration Intact and Proprioception Intact Coordination: Normal; negative Limited Balance, Dysdiadochokinesia, Finger-Nose Abnormal or Heel-Renteria Abnormal Deep Tendon Reflexes: Rt Triceps: 2+, Lt Triceps: 2+, Rt Biceps: 2+, Lt Biceps: 2+, Rt Brachioradialis: 2+, Lt Brachioradialis: 2+, Rt Patellar: 2+, Lt Patellar: 2+, Rt Ankle: 2+ and Lt Ankle: 2+ Special Tests: negative Babinski Present Gait: Normal Station and Gait Details: With bedside testing patient exhibits elements of Gerstmann syndrome including difficulty with finger naming, left right confusion, and difficulty with simple calculations. She did not display agraphia. Results & Data ([facility]) Vital Signs (Past 12 Hours) Vital Signs Temp Pulse Pulse Pulse Resp BP Pulse Ox 03/16/22 07:49 82 03/16/22 07:38 37.1 C 83 16 131/82 94 03/16/22 04:04 37 C 103 H 104 H 24 143/84 H 92 03/15/22 23:50 87 03/15/22 22:44 37.1 C 84 20 143/78 H 96 O2 Del Method 03/16/22 07:49 03/16/22 07:38 Room Air 03/16/22 04:04 Room Air 03/15/22 23:50 03/15/22 22:44 Room Air Laboratory Results WBC 9.36, hemoglobin 11.3, hematocrit 35.1, MCV 89.1, platelet count 280, ESR 19, sodium 136, potassium 4.3, BUN 15, creatinine 0.73, glucose 95, hemoglobin A1c 6.1, calcium 8.6, magnesium 1.8, AST 17, ALT 18, triglycerides 66, cholesterol 99, LDL 54, VLDL 13, HDL 32 Diagnostic Findings Imaging is as described in the HPI including CT of the head, CT angiography of the head and neck, and brain MRI. Patient did have a follow-up head CT completed this morning which redemonstrated the previously seen left posterior MCA infarct with mass-effect and mild midline shift, without evidence of hemorrhagic transformation. I did review these images as well and agree with these findings as described by the interpreting radiologist. Electrocardiogram reveals a normal sinus rhythm, 91 bpm. An echocardiogram reveals an ejection fraction of 30 to 35%, moderate to severe global hypokinesis of the left ventricle, left atrium moderately dilated, no atrial septal defect. Coding Level of Care Code 75238 Initial Inpt Care Lvl 3 Diagnoses Acute CVA (cerebrovascular accident) I63.9
--- NOTE | 2022-03-16 13:26 | Cardiology Consultation ---
Date of Consultation March 16, 2022 Assessment & Plan (1) Acute heart failure with reduced ejection fraction and diastolic dysfunction: (2) Acute CVA (cerebrovascular accident): Plan I had a long discussion with the patient and her daughter regarding the natural history and pathophysiology of acute heart failure with reduced ejection fraction. Recommend addition of furosemide 40 mg IV x1 now. Restart metoprolol succinate 25 mg daily. Reassess a.m. labs with consideration for ARB or Entresto pending review. Discontinue IV fluid. Monitor daily weight, fluid balance, GFR, and electrolytes. ECG changes and mildly elevated troponin noted. Findings secondary to acute ne urologic event versus congestive heart failure. In regard to acute CVA, continue single antiplatelet therapy per direction of neurology. Outpatient event monitor recommended to exclude possible paroxysmal atrial fibrillation/flutter. Systemic anticoagulation will be avoided currently due to evidence of cytotoxic edema on MRI of the brain. History of Present Illness Reason for Consultation: CHF, CVA Requesting Physician: Dr. Coats Attending Physician: David Coats MD History of Present Illness 76-year-old female admitted 03/15/2022 secondary to confusion and speech abnormality. Diagnosed with acute cerebrovascular accident. A bedside 2D transthoracic echocardiogram was performed demonstrating severe LV systolic dysfunction. Previous echocardiogram performed in August 2020 demonstrating borderline LV systolic dysfunction with ejection fraction of 50-54%. Patient somewhat of a poor historian. Notes dyspnea on exertion for several months. Denies orthopnea or PND, however, sleeps in a recliner. Daughter at bedside states her mother has slept in a chair for as long as she can remember. Patient denies palpitations, lightheadedness, dizziness, syncope, or near syncope. Currently resting comfortably. Telemetry reveals sinus rhythm with PACs and PVCs. No evidence of atrial fibrillation. Due to cytotoxic edema on MRI of the brain, single antiplatelet therapy with clopidogrel recommended by neurology. Blood pressure controlled since admission. Outpatient metoprolol currently on hold. Medical history copied from the [facility] record: 1. Coronary artery disease status post CABG CABG x4 with a ASHER to the LAD, vein graft to the 1st diagonal, vein graft to the 1st OM and vein graft to the PDA August 27, 2019. 2. History of pulmonary fibrosis with episodes of flares resulting in chest pain did respond to steroid taper. 3. Rheumatoid arthritis 4. Hypertension 5. Dyslipidemia 6. History of tobacco abuse. Allergies Allergy/AdvReac Type Severity Reaction Status Date / Time codeine Allergy Unknown UNSURE, Verified 01/13/21 17:56 BUT HAD IT BEFORE Home Medications Medication Instructions Recorded Confirmed Type aspirin 81 mg tablet,delayed 81 mg PO QAM 09/22/19 03/15/22 History release (Jemma Low Dose Aspirin) atorvastatin 10 mg tablet 10 mg PO QAM 09/22/19 03/15/22 History folic acid 1 mg tablet 1 mg PO QAM 09/22/19 03/15/22 History metoprolol succinate 25 mg 25 mg PO QAM 09/22/19 03/15/22 History tablet,extended release 24 hr hydroxychloroquine 200 mg tablet 200 mg PO BID 01/13/21 03/15/22 History methotrexate sodium 2.5 mg tablet 20 mg PO WK 01/13/21 03/15/22 History prednisone 10 mg tablet 0 mg PO DIRECTED PRN ARTHRITIS 01/13/21 03/15/22 History FLARE UPS pantoprazole 40 mg tablet,delayed 40 mg PO DAILY 03/17/22 03/17/22 History release Patient History Medical History Acute CVA (cerebrovascular accident) CAD (coronary artery disease) CAD (coronary artery disease) COPD (chronic obstructive pulmonary disease) HLD (hyperlipidemia) HTN (hypertension) Rheumatoid arthritis Rheumatoid lung disease Surgical History Hx of CABG Social History Smoking Status: Never smoker Hx Alcohol Use: No Hx Substance Use: No Preferred Language: Tajik Communication Ability: Effective 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 Beliefs That Will Affect Care: None marital status: Current Living Situation: Spouse Current Living Situation Comment: pt takes care of her at home Feels Safe at Home: Yes Safety Concerns: Feels Safe At This Time Assistive Devices: Denture - Upper, Denture - Lower and Oxygen - at Night Assistive Devices Comment: shower chair , grab bars Review of Systems Review of Systems: All systems reviewed & are unremarkable except as noted in Subjective Physical Exam Constitutional: well nourished; no acute distress Respiratory: normal respiratory effort; no respiratory distress and no labored breathing Auscultation: + crackles (Bilateral); no rhonchi and no wheezes Cardiovascular: Rate/Rhythm: regular rate and regular rhythm Heart Sounds: normal S1 and normal S2; no murmur Vessels: radial pulses present; no JVD and no carotid bruit Gastrointestinal (Abdomen): Inspection/Auscultation: normal bowel sounds; abdomen not distended Percussion/Palpation: abdomen soft; abdomen nontender, no guarding and abdomen not rigid Neurologic: moves all extremities Psychiatric: A+Ox3, euthymic affect Results & Data ([facility]) Vital Signs (Past 12 Hours) Vital Signs Temp Pulse Pulse Pulse Resp BP Pulse Ox 03/16/22 11:35 37.2 C 90 16 138/84 95 03/16/22 07:49 82 03/16/22 07:38 37.1 C 83 16 131/82 94 03/16/22 04:04 37 C 103 H 104 H 24 143/84 H 92 O2 Del Method 03/16/22 11:35 Room Air 03/16/22 07:49 03/16/22 07:38 Room Air 03/16/22 04:04 Room Air ECG Additional Comments: ECG: Sinus rhythm with PACs, lateral T wave abnormality, consider ischemia. Compared to previous ECG dated September 12, 2020 in the [facility] record, lateral T wave inversions have replaced nonspecific T wave abnormality.
[2022-03-16] MEDS: FUROSEMIDE 40 MG/4 ML VIAL IV SCH (13:50)
[2022-03-16] MEDS: METOPROLOL SUCC 25MG EXT REL TAB PO SCH (14:33)
--- NOTE | 2022-03-16 16:23 | Electrocardiogram Report ---
Test Reason : Blood Pressure : / mmHG Vent. Rate : 091 BPM Atrial Rate : 091 BPM P-R Int : 136 ms QRS Dur : 096 ms QT Int : 388 ms P-R-T Axes : 057 028 -08 degrees QTc Int : 477 ms Normal sinus rhythm T wave abnormality, consider anterolateral ischemia Prolonged QT Abnormal ECG When compared with ECG of 15-MAR-2022 10:27, Premature supraventricular complexes are no longer Present T wave inversion less evident in Lateral leads Confirmed by Zacarias Montoya ([id number]) on 03/16/2022 4:23:05 PM Referred By: REFERRED SELF Confirmed By:Zacarias Montoya
[2022-03-17 06:42] LABS: Hematocrit (blood only) 34.6 % (34.1-44.9); Hemoglobin 11.4 g/dl (12.0-16.0); Mean Corpuscular Hgb Conc 32.9 g/dL (32.0-36.0); Mean Platelet Volume 10.3 fL (9.4-12.3); Platelet Count 283 K/uL (130-400); RDW Coefficient of Variation 14.2 % (11.5-14.5); RDW Standard Deviation 45.2 fL (36.4-46.3); Red Blood Count 3.93 M/uL (3.93-5.22); White Blood Count 8.68 K/ul (4.8-10.8)
[2022-03-17 07:00] LABS: Est GFR (Non-African American) 78.5 ml/min; Potassium 3.9 mmol/L (3.5-5.1)
[2022-03-17 07:01] LABS: Calcium 8.7 mg/dl (8.5-10.1)
[2022-03-17] MEDS: CLOPIDOGREL BISULFATE 75 MG TAB PO SCH (09:01)
[2022-03-17] MEDS: FUROSEMIDE 40 MG/4 ML VIAL IV SCH (09:01)
[2022-03-17] MEDS: ATORVASTATIN 40 MG TAB PO SCH (09:01)
[2022-03-17] MEDS: VALSARTAN/SACUBITRIL 26/24MG TAB PO SCH ×2 (09:13→20:18)
[2022-03-17] MEDS: METOPROLOL SUCC 25MG EXT REL TAB PO SCH (09:57)
--- NOTE | 2022-03-17 12:23 | Electrocardiogram Report ---
Test Reason : Blood Pressure : / mmHG Vent. Rate : 084 BPM Atrial Rate : 084 BPM P-R Int : 148 ms QRS Dur : 096 ms QT Int : 416 ms P-R-T Axes : 046 020 -35 degrees QTc Int : 491 ms Sinus rhythm with Premature supraventricular complexes Cannot rule out Anterior infarct , age undetermined T wave abnormality, consider lateral ischemia Abnormal ECG When compared with ECG of 16-MAR-2022 04:13, Premature supraventricular complexes are now Present Confirmed by Zacarias Montoya ([id number]) on 03/17/2022 12:22:39 PM Referred By: REFERRED SELF Confirmed By:Zacarias Montoya
--- NOTE | 2022-03-17 13:16 | Hospitalist Progress Note ---
Date of Service March 17, 2022 Assessment & Plan (1) Acute CVA (cerebrovascular accident): Plan: Cytotoxic edema on MRI brain therefore on clopidogrel is only given instead of DAPT. Still with some blurriness to vision-needs to see ophthalmology and should be restricted from driving until that time. Intermittent self-reported confusion but she is functioning at a high level today. Cont atorvastatin at increased dose. Omeprazole will be switched to pantoprazole at discharge given interaction wtih Plavix. Cont on telemetry and recommend zio patch as outpatient as cardioembolic source is a possibility. (2) Acute heart failure with reduced ejection fraction and diastolic dysfunction: Plan: Improved on intravenous diuresis with furosemide. Cont Toprol XL per home regimen and Entresto added this admission. Needs 7 day follow-up post discharge. Cont IV diuretic until cardiology feels she is optimized. Defer to them for additional work up into cause of new onset reduced pump function. Notably has a CAD s/p bypass. (3) COPD (chronic obstructive pulmonary disease): Plan: chronic, stable. Cont Anoro Ellipta per home regimen. (4) CAD (coronary artery disease): Plan: chronic, stable. Cont current medical management. (5) Rheumatoid arthritis: Plan: chronic, stable. Cont plaquenil and methotrexate for control. (6) DVT prophylaxis: Plan: No chemoprophylaxis given concerns for possible hemorrhagic transformation Full Code Dispo-pending optimization with medical therapy from a cardiac perspective. Rhiannon Santana DO [facility] Hospitalist Admission and Anticipated Discharge Date Admission Date: March 15, 2022 Subjective Patient seen in follow-up of acute CVA, acute systolic CHF exacerbation Denies issues today Still slight dyspnea with exertion but reports feeling immediately better after the lasix this morning She reports occasional confusion but is able to text, and is not showing any deficits at this time She is tolerating PO and denies any issues with swallowing No headaches or and reports some difficulty with blurry vision that is new, and she is ambulating to and from the bathroom without issue Denies chest pain Review of Systems Review of Systems: All systems were reviewed and negative except as indicated in subjective above. Physical Exam Physical Exam: CONSTITUTIONAL: WNWD, vitals as above, generally well- appearing, NAD EYES: pupils are round and equal bilaterally, normal conjunctivae, no scleral icterus ENT: external ear and nose normal, MMM NECK: trachea midline, RESPIRATORY: crackles on right base (she was laying on her right side), clear on the left, no wheezing or rales present. normal respiratory effort CARDIOVASCULAR: regular rate and rhythm, S1 and 2 heard without murmurs, gallops or rubs, no JVD, no peripheral edema CHEST: inspection of chest was normal GASTROINTESTINAL: soft, nontender, ND, no guarding MUSCULOSKELETAL: strength 5/5 throughout, head is normocephalic and atraumatic, SKIN: warm and dry NEUROLOGIC: No facial palsy, no dysarthria. Touch, pain and proprioception normal. CN 2-12 grossly intact, no sensory deficit, normal cognition, normal speech, no tremor PSYCHIATRIC: alert cooperative and oriented to person, place and time. Euthymic mood, makes good eye contact, language grossly intact, recent and remote memory grossly intact. Results & Data Results & Data ([facility]) Vital Signs (Past 12 Hours) Vital Signs Temp Pulse Pulse Resp BP Pulse Ox O2 Del Method 03/17/22 11:53 36.7 C 80 17 129/77 98 03/17/22 08:00 91 H 03/17/22 08:03 37.1 C 78 18 127/78 92 Room Air 03/17/22 04:07 36.8 C 89 20 124/73 92 Room Air Laboratory Results Short CBC 03/17/22 Range/Units 06:04 WBC 8.68 (4.8-10.8) K/ul Hgb 11.4 L (12.0-16.0) g/dl Hct 34.6 (34.1-44.9) % Plt Count 283 (130-400) K/uL BMP 03/17/22 06:04 Sodium 137 Potassium 3.9 Chloride 103 Carbon Dioxide 27 BUN 18 Creatinine 0.75 Glucose 88 Calcium 8.7 Medications Administered Current Inpatient Medications Acetaminophen (Acetaminophen 325 Mg Tab) 650 mg PO Q4H PRN PRN Reason: Pain or Fever Stop: 04/14/22 14:35 Al Hydrox/Mg Hydrox/Simethicone (Aluminum/Magnesium Susp 30 Ml Udc) 15 ml PO Q4H PRN PRN Reason: Dyspepsia Stop: 04/14/22 14:35 Atorvastatin Calcium (Atorvastatin 40 Mg Tab) 40 mg PO QAM [facility] Stop: 04/15/22 08:59 Last Admin: 03/17/22 09:01 Dose: 40 mg Clopidogrel Bisulfate (Clopidogrel Bisulfate 75 Mg Tab) 75 mg PO QAM [facility] Stop: 04/15/22 08:59 Last Admin: 03/17/22 09:01 Dose: 75 mg Furosemide (Furosemide 40 Mg/4 Ml Vial) 40 mg IV DAILY [facility] Stop: 04/15/22 13:44 Last Admin: 03/17/22 09:01 Dose: 40 mg Magnesium Hydroxide (Magnesium Hydroxide Susp 30 Ml Udc) 30 ml PO Q12H PRN PRN Reason: Constipation Stop: 04/14/22 14:35 Metoprolol Succinate (Metoprolol Succ 25mg Ext Rel Tab) 25 mg PO QAM [facility] Stop: 04/15/22 13:44 Last Admin: 03/17/22 09:57 Dose: 25 mg Miscellaneous Information (Pharmacist Discharge Med Rec Consult) 1 each N/A UD PRN PRN Reason: Consult Stop: 04/14/22 14:35 Ondansetron HCl (Ondansetron Inj 2 Mg/Ml 2 Ml Vial) 4 mg IV Q6H PRN PRN Reason: Nausea Stop: 04/14/22 14:35 Polyethylene Glycol (Polyethylene (Miralax) 17 Gm Pack) 17 gm PO DAILY PRN PRN Reason: Constipation Stop: 04/14/22 14:35 Sacubitril/Valsartan (Valsartan/Sacubitril 26/24mg Tab) 1 tab PO BID [facility] Stop: 04/16/22 08:59 Last Admin: 03/17/22 09:13 Dose: 1 tab
--- NOTE | 2022-03-17 13:32 | Cardiology Progress Note ---
Date of Service March 17, 2022 Assessment & Plan (1) Acute heart failure with reduced ejection fraction and diastolic d ysfunction: (2) Acute CVA (cerebrovascular accident): Plan Patient subjectively improved with IV diuretic therapy. Pulmonary crackles less prominent. Oxygen saturation 98% on room air. Recommend addition of Entresto. Continue metoprolol succinate and daily IV furosemide. Consider addition of Aldactone in a.m. pending review of lab studies. Monitor daily weight, fluid balance, GFR, and electrolytes. ECG changes and mildly elevated troponin noted. Findings secondary to acute neurologic event versus congestive heart failure. In regard to acute CVA, continue single antiplatelet therapy per direction of neurology. Outpatient event monitor recommended to exclude possible paroxysmal atrial fibrillation/flutter. Systemic anticoagulation will be avoided currently due to evidence of cytotoxic edema on MRI of the brain. Admission and Anticipated Discharge Date Admission Date: March 15, 2022 Subjective Patient seen examined the bedside. Feeling much better today after IV Lasix. Tolerating beta-rae therapy. Denies chest pain, orthopnea, or PND. No dysrhythmias on telemetry. Offers no new concerns/complaints Review of Systems Review of Systems: All systems reviewed & are unremarkable except as noted in Subjective Physical Exam Constitutional: well nourished; no acute distress Respiratory: normal respiratory effort; no respiratory distress and no labored breathing Auscultation: + crackles (Bilateral bases); no rhonchi and no wheezes Cardiovascular: Rate/Rhythm: regular rate and regular rhythm Heart Sounds: normal S1 and normal S2; no murmur Vessels: radial pulses present; no JVD and no carotid bruit Gastrointestinal (Abdomen): Inspection/Auscultation: normal bowel sounds; abdomen not distended Percussion/Palpation: abdomen soft; abdomen nontender, no guarding and abdomen not rigid Neurologic: moves all extremities Psychiatric: A+Ox3, euthymic affect Results & Data ([facility]) Vital Signs (Past 12 Hours) Vital Signs Temp Pulse Pulse Resp BP Pulse Ox O2 Del Method 03/17/22 11:53 36.7 C 80 17 129/77 98 03/17/22 08:00 91 H 03/17/22 08:03 37.1 C 78 18 127/78 92 Room Air 03/17/22 04:07 36.8 C 89 20 124/73 92 Room Air
[2022-03-17] MEDS: UMECLIDINIUM/VILANTEROL 62.5/25MCG 7 PUFFS/INHALER INH SCH (15:37)
[2022-03-17] MEDS: HYDROXYCHLOROQUINE SULFATE 200 MG TAB PO SCH (20:18)
[2022-03-18 07:57] LABS: Calcium 8.8 mg/dl (8.5-10.1); Creatinine Clr Calc Pharmacy 62.2 ml/min; Est GFR (African American) 81.7 ml/min; Est GFR (Non-African American) 70.5 ml/min; Potassium 3.6 mmol/L (3.5-5.1)
[2022-03-18] MEDS: METOPROLOL SUCC 25MG EXT REL TAB PO SCH (08:22)
[2022-03-18] MEDS: CLOPIDOGREL BISULFATE 75 MG TAB PO SCH (08:22)
[2022-03-18] MEDS: VALSARTAN/SACUBITRIL 26/24MG TAB PO SCH (08:22)
[2022-03-18] MEDS: HYDROXYCHLOROQUINE SULFATE 200 MG TAB PO SCH (08:22)
[2022-03-18] MEDS: FUROSEMIDE 40 MG/4 ML VIAL IV SCH (08:23)
[2022-03-18] MEDS: UMECLIDINIUM/VILANTEROL 62.5/25MCG 7 PUFFS/INHALER INH SCH (08:23)
[2022-03-18] MEDS: ATORVASTATIN 40 MG TAB PO SCH (08:23)
[2022-03-18] MEDS ORDERED: FOLIC ACID 1 MG TAB PO SCH (09:00)
[2022-03-18] MEDS ORDERED: PANTOprazole 40 MG TAB PO SCH (09:00)
[2022-03-18] MEDS ORDERED: SPIRONOLACTONE 12.5 MG TAB PO SCH (10:00)
--- NOTE | 2022-03-18 12:24 | Cardiology Progress Note ---
Date of Service March 18, 2022 Assessment & Plan (1) Acute heart failure with reduced ejection fraction and diastolic d ysfunction: (2) Acute CVA (cerebrovascular accident): Plan Volume status improved with IV diuretic therapy now with borderline hypotension. Recommend discontinuing IV furosemide. Continue metoprolol, Entresto, and spironolactone. Reduce Lasix to 20 mg on Tuesday, Tuesday, and Fridays upon discharge. She will require a repeat basic metabolic panel in 1 week due to multiple medication changes during hospitalization including addition of Entresto and spironolactone. Patient should monitor daily weight at home. Diuretic protocol: Take additional 20 mg of furosemide if weight increases more than 2 pounds in a 40-hour period, or 5 pounds in 1 week. In regard to acute CVA, continue single antiplatelet therapy per direction of neurology. Outpatient event monitor recommended to exclude possible paroxysmal atrial fibrillation/flutter. Systemic anticoagulation will be avoided currently due to evidence of cytotoxic edema on MRI of the brain. Outpatient cardiology follow-up in 1-2 weeks. Admission and Anticipated Discharge Date Admission Date: March 15, 2022 Subjective Patient seen examined the bedside. Reports feeling somewhat lightheaded this morning. Borderline hypotension recorded. Denies orthopnea or PND. Telemetry reveals sinus rhythm with PACs. Review of Systems Review of Systems: All systems reviewed & are unremarkable except as noted in Subjective Physical Exam Constitutional: well nourished; no acute distress Respiratory: normal respiratory effort; no respiratory distress and no labored breathing Auscultation: + crackles (Bilateral bases); no rhonchi and no wheezes Cardiovascular: Rate/Rhythm: regular rate and regular rhythm Heart Sounds: normal S1 and normal S2; no murmur Vessels: radial pulses present; no JVD and no carotid bruit Gastrointestinal (Abdomen): Inspection/Auscultation: normal bowel sounds; abdomen not distended Percussion/Palpation: abdomen soft; abdomen nontender, no guarding and abdomen not rigid Neurologic: moves all extremities Psychiatric: A+Ox3, euthymic affect Results & Data ([facility]) Vital Signs (Past 12 Hours) Vital Signs Temp Pulse Pulse Resp BP Pulse Ox O2 Del Method 03/18/22 11:23 36.7 C 76 17 95/57 L 95 Room Air 03/18/22 08:00 77 03/18/22 08:01 36.7 C 89 20 112/80 92 Room Air 03/18/22 03:33 36.6 C 91 H 128/75 92 Room Air
--- NOTE | 2022-03-18 12:40 | Discharge Summary ---
Discharge Summary Date of Service March 18, 2022 Notes For Next Care Provider SOL in one week after multiple medication changes during hospital stay Needs follow-up with ophthalmology for visual changes No driving until follow up with ophthalmology Stop omeprazole, cont protonix to avoid clopidogrel interaction DAPT not given because of cytotoxic edema on MRI Needs neuro follow-up in 4-6 weeks Needs mobile outpatient cardiac telemetry given possibility of occult arrhythmia causing stroke Medication Changes From Visit Atorvastatin 40mg PO daily Clopidogrel 75mg PO daily Entresto 24-26mg PO daily Furosemide 20mg MWF with extra PRN weight gain Pantoprozole 40mg PO daily Spironolactone 12.5mg PO daily Admission HPI Per Admitting Provider Ms. Cm is a 76 year old female who presented to the [facility] with altered mental status and forgetfulness. She reports forgetting her cell phone # and what she did for her career. 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 She denied any slurred speech, she takes a baby asa at baseline. Patient has an extensive PMH that includes ILD, RA, COPD, HLD, CAD s/p CABG x4 in 2019, HLD, nocturnal hypoxia, and GERD. CXR revealed pleural effusions and head CT revealed an acute CVA with some notable mild midline shift without hemorrhage. She also received one dose of ASA 324 in ED. As her symptoms have resolved and the duration of her symptoms was > 3 days; she falls outside of the parameters for a stroke alert. MRI and head/neck CT ordered. ROS, patient currently denies KHOURY, dizziness, CP, palpitations, N/V/D, skin changes, appetite changes. Patient did take her AM medications. Patient will be admitted for further evaluation and management. Please see A/P for further details. Admission Exam Per Admitting Provider Physical Exam Physical Exam: Neuro: AAOx4, PERRLA, no aphagia, memory changes, CNII-XII grossly intact, some right sided facial droop HEENT: head normocephalic, moist mucus membranes CV: S1/S2, (-) M/G/R, (-) edema, cap refill < 3 seconds Resp: Lungs CTA in all sheehan. On 2LNC GI: Abdomen S/NT/ND, Ax4 bowel sounds, (-) CVA tenderness Musculoskeletal: 5/5 B/L UE strength, 5/5 B/L LE strength. No gait disturbance Skin: (-) rashes , (-) erythema. Psych: euthymic mood Principal Dx & Hospital Course #1 = Principal Diagnosis (1) Acute CVA (cerebrovascular accident): Presented with stroke symptoms. MRI brain revealed acute infarct of the left temporal parietal distribution measures up to 5 cm. Moderate associated cytotoxic edema results in mass effect with 4 mm of rightward midline shift. Cytotoxic edema on MRI brain therefore on clopidogrel is only given instead of DAPT. Still with some blurriness to vision-needs to see ophthalmology and should be restricted from driving until that time. Intermittent self-reported confusion but she is functioning at a high level prior to discharge. Cont atorvastatin at increased dose. Omeprazole will be switched to pantoprazole at discharge given interaction wtih Plavix. Cont on telemetry and recommend zio patch as outpatient as cardioembolic source is a possibility given new decline in ejection fraction. (2) Acute heart failure with reduced ejection fraction and diastolic dysfunction: Echo performed for stroke workup with findings of new onset reduced ejection fraction (30-35%). Cardiology consulted and she improved on intravenous diuresis with furosemide. Cont Toprol XL per home regimen and Entresto and spironolactone added this admission. Needs 7 day follow-up post discharge. She received once daily IV Lasix 40mg during her stay and will go home on Lasix 20mg MWF with additional for any weight gain. Defer to cardiology for additional work up into cause of new onset reduced pump function. Notably has a CAD s/p bypass. Cont medical management. (3) COPD (chronic obstructive pulmonary disease): chronic, stable. Cont Anoro Ellipta per home regimen. (4) CAD (coronary artery disease): chronic, stable. Cont current medical management. (5) Rheumatoid arthritis: chronic, stable. Cont plaquenil and methotrexate for control. (6) DVT prophylaxis: No chemoprophylaxis given concerns for possible hemorrhagic transformation Plan She was ambulating and mentating at her baseline and tolerating PO at time of discharge. She is doing well overall despite some persistent intermittent dyspnea. There is no hypoxia and no increased work of breathing on exam. Discharge Exam CONSTITUTIONAL: WNWD, vitals as above, generally well-appearing, NAD EYES: pupils are round and equal bilaterally, normal conjunctivae, no scleral icterus ENT: external ear and nose normal, MMM NECK: trachea midline, RESPIRATORY: clear to auscultation throughout, no wheezing or rales present. normal respiratory effort CARDIOVASCULAR: regular rate and rhythm, S1 and 2 heard without murmurs, gallops or rubs, no JVD, no peripheral edema CHEST: inspection of chest was normal GASTROINTESTINAL: soft, nontender, ND, no guarding MUSCULOSKELETAL: strength 5/5 throughout, head is normocephalic and atraumatic, SKIN: warm and dry NEUROLOGIC: No facial palsy, no dysarthria. Touch, pain and proprioception normal. CN 2-12 grossly intact, no sensory deficit, normal cognition, normal speech, no tremor PSYCHIATRIC: alert cooperative and oriented to person, place and time. Euthymic mood, makes good eye contact, language grossly intact, recent and remote memory grossly intact. Updated Medication List Medication Instructions Recorded Confirmed Type aspirin 81 mg tablet,delayed 81 mg PO QAM 09/22/19 03/15/22 History release (Jemma Low Dose Aspirin) atorvastatin 10 mg tablet 10 mg PO QAM 09/22/19 03/15/22 History folic acid 1 mg tablet 1 mg PO QAM 09/22/19 03/15/22 History metoprolol succinate 25 mg 25 mg PO QAM 09/22/19 03/15/22 History tablet,extended release 24 hr hydroxychloroquine 200 mg tablet 200 mg PO BID 01/13/21 03/15/22 History methotrexate sodium 2.5 mg tablet 20 mg PO WK 01/13/21 03/15/22 History prednisone 10 mg tablet 0 mg PO DIRECTED PRN ARTHRITIS 01/13/21 03/15/22 History FLARE UPS omeprazole 20 mg capsule,delayed 20 mg PO DAILY 03/17/22 03/17/22 History release pantoprazole 40 mg tablet,delayed 40 mg PO DAILY 03/17/22 03/17/22 History release umeclidinium 62.5 mcg-vilanterol 1 inh inhalation DAILY 03/17/22 03/17/22 History 25 mcg/actuation powdr for inhalation (Anoro Ellipta) atorvastatin 40 mg tablet 40 mg PO QAM #30 tabs 03/18/22 Rx clopidogrel 75 mg tablet 75 mg PO QAM #30 tabs 03/18/22 Rx furosemide 20 mg tablet 20 mg PO .MWF #30 tabs 03/18/22 Rx pantoprazole 40 mg tablet,delayed 40 mg PO DAILY #30 tabs 03/18/22 Rx release sacubitril 24 mg-valsartan 26 mg 1 tab PO BID #60 tabs 03/18/22 Rx tablet (Entresto) spironolactone 25 mg tablet 12.5 mg PO DAILY #30 tabs 03/18/22 Rx Hospital Stay Data Consultations 03/15/22 12:38 ED Decision to Admit Stat 03/15/22 14:36 Consult Neurology Routine 03/16/22 11:50 Consult Cardiology Routine Diagnostic Imagining Performed 03/15/22 10:09 CT head/brain wo con Stat 03/15/22 13:08 MRI Brain [MR brain wo con] Stat 03/15/22 14:03 CT angio head w con Stat 03/15/22 14:17 CT angio neck with con Stat 03/15/22 18:12 CT angio chest PE protocol Routine 03/16/22 08:19 CT head/brain wo con Urgent Discharge Instructions Given to Patient (Per Discharging Provider) Please take all medications as instructed on discharge list below. You are being started on Entresto, spironolactone and Lasix for your decreased heart pump function and fluid retention. Please follow-up with cardiology in the next few weeks (time/date above) for repeat check since leaving the hospital. Patient should monitor daily weight at home. Diuretic protocol: Take additional 20 mg of furosemide if weight increases more than 2 pounds in a 40-hour period, or 5 pounds in 1 week. A repeat BMP (nonfasting bloodwork) is indicated in the next 2 weeks after multiple new medications. Please note you should take Pantoprozole for acid reflux instead of Omeprazole to avoid an interaction with Plavix. No driving until after you are evaluated by ophthalmology. Please work with your PCP for an appointment with someone in the area. It was a pleasure taking care of you! Please call if you have any questions or problems. You can reach a [facility] hospitalist on duty at [facility] 24 hours a day by calling [phone]. Take care of yourself. Rhiannon Santana, DO [facility] Hospitalist Total Time Total Time Spent Total Time Spent (In Minutes): 60
[2022-03-18] MEDS ORDERED: STROKE PATIENT DISCHARGE STA (12:43)
[2022-03-19] MEDS ORDERED: metHOTREXate sodium 2.5 MG TAB PO SCH (09:00)
--- NOTE | 2022-03-21 15:37 | Pharmacy Report ---
Pharmacist Stroke Counseling - Date of Service March 21, 2022 - Scope: Pharmacy has been consulted to provide medication discharge counseling for this patient admitted with [ischemic stroke] [hemorrhagic stroke] [transient ischemic attack] as per the Pharmacist Discharge Counseling for Stroke Patients Pr otocol. - Medications on Discharge: Home Medications Medication Instructions Recorded Confirmed folic acid 1 mg tablet 1 mg PO QAM 09/22/19 03/15/22 metoprolol succinate 25 mg 25 mg PO QAM 09/22/19 03/15/22 tablet,extended release 24 hr hydroxychloroquine 200 mg tablet 200 mg PO BID 01/13/21 03/15/22 methotrexate sodium 2.5 mg tablet 20 mg PO WK 01/13/21 03/15/22 prednisone 10 mg tablet 0 mg PO DIRECTED PRN ARTHRITIS 01/13/21 03/15/22 FLARE UPS umeclidinium 62.5 mcg-vilanterol 1 inh inhalation DAILY 03/17/22 03/17/22 25 mcg/actuation powdr for inhalation (Anoro Ellipta) New Rx's Medication Instructions Recorded atorvastatin 40 mg tablet 40 mg PO QAM #30 tabs 03/18/22 clopidogrel 75 mg tablet 75 mg PO QAM #30 tabs 03/18/22 furosemide 20 mg tablet 20 mg PO .MWF #30 tabs 03/18/22 pantoprazole 40 mg tablet,delayed 40 mg PO DAILY #30 tabs 03/18/22 release sacubitril 24 mg-valsartan 26 mg 1 tab PO BID #60 tabs 03/18/22 tablet (Entresto) spironolactone 25 mg tablet 12.5 mg PO DAILY #30 tabs 03/18/22 - Action: The above medications, specifically ones for stroke treatment/prophylaxis, have been reviewed in detail with the patient and/or patient technical services representative(s) prior to discharge. This includes indication, common adverse reactions, drug interactions, and medication administration. Medication counseling has been employed using the teach-back method to ensure understanding. - Outcome: The patient demonstrated understanding of the medications. Additional comments: Counseled patient in her room on 03/18/22- she was very pleasant and receptive to counseling. Reviewed new medications to prevent stroke including Plavix, Atorvastatin 40mg and stopping Prilosec for Protonix due to drug interaction. Explained to patient that the Plavix should replace the baby Aspirin that she used to take. Also, she should stop taking the Atorvastatin 10 mg daily since dose is now increased to 40 mg daily. Discussed why they are being used and common side effects in great detail. Reviewed how to use the medications, what to do if doses are missed, common drug interactions, common side effects, what to watch out for while using the medications. Pt verbalized understanding and restated the pillai points of each medication. Answered questions and showed her the details about meds on the stroke handout that was given to her by nurse. Thank you for allowing pharmacy to be involved in the care of this patient. Please call [phone] with any additional questions
== END 2022-03-18 15:24 | disposition home or self-care (01) | DRG 64 ==
LOC: ED 09:28 → SUATTDRO 12:26 → 2S 12:26
DX: Z88.5 Allergy status to narcotic agent; E78.5 Hyperlipidemia, unspecified; I63.512 Cerebral infarction due to unspecified occlusion or stenosis of left middle cerebral artery; J44.9 Chronic obstructive pulmonary disease, unspecified; I50.21 Acute systolic (congestive) heart failure; I11.0 Hypertensive heart disease with heart failure; Z95.1 Presence of aortocoronary bypass graft; G93.6 Cerebral edema; Z79.891 Long term (current) use of opiate analgesic; I25.10 Atherosclerotic heart disease of native coronary artery without angina pectoris; M05.10 Rheumatoid lung disease with rheumatoid arthritis of unspecified site; Z79.899 Other long term (current) drug therapy; Z79.82 Long term (current) use of aspirin